=== PATIENT | male | born 1950 | race African-American/Black ===

== ENCOUNTER 2017-07-22 11:47 | Emergency (ER) | payer MEDICARE, OTHER ==
[2017-07-22 12:51] LABS: ADD MAN DIFF? NO
[2017-07-22 12:54] LABS: WHITE BLOOD COUNT 6.7 10^3/ul (4.8-10.8)
[2017-07-22 12:54] LABS: BASOPHILS % 0.6 % (0.0-2.0); EOSINOPHILS % 0.1 % (0.0-7.0); HEMATOCRIT 42.9 % (42.0-52.0); HEMOGLOBIN 14.4 g/dl (14.0-18.0); LYMPHOCYTES # 2.6 10^3/ul (0.8-2.9); MEAN CORPUSCULAR HEMOGLOBIN 28.2 pg (29.0-33.0); MEAN CORPUSCULAR HGB CONC 33.6 g/dl (32.0-37.0); MEAN PLATELET VOLUME 11.7 fl (7.4-10.4); MONOCYTE # 0.9 10^3/ul (0.3-0.9); MONOCYTES % 12.8 % (0.0-11.0); NEUTROPHIL # 3.2 10^3/ul (1.6-7.5); NEUTROPHILS % 47.2 % (39.0-77.0); PLATELET COUNT 202 10^3/UL (140-415); RED BLOOD COUNT 5.11 10^6/ul (4.70-6.10); RED CELL DISTRIBUTION WIDTH 15.7 % (11.5-14.5)
[2017-07-22 13:15] LABS: ANION GAP 15 (8-16); BLOOD UREA NITROGEN 11 mg/dl (7-20); CALCIUM 8.9 mg/dl (8.4-10.2); CARBON DIOXIDE 30 mmol/L (21-31); CHLORIDE 97 mmol/L (97-110); CREATININE 1.06 mg/dl (0.61-1.24); GLUCOSE 172 mg/dl (70-220); POTASSIUM 3.4 mmol/L (3.5-5.1); SODIUM 139 mmol/L (135-144)
[2017-07-22 13:27] LABS: TROPONIN-I 0.019 ng/ml (0.00-0.12)
[2017-07-22] MEDS: POTASSIUM CHLORIDE (SR) 20 MEQ TAB PO (13:48)
== END 2017-07-22 14:04 | disposition home or self-care (01) ==
LOC: E/R 11:47
DX: R55 Syncope and collapse (principal); E87.6 Hypokalemia; F17.210 Nicotine dependence, cigarettes, uncomplicated; Z79.84 Long term (current) use of oral hypoglycemic drugs; Z98.61 Coronary angioplasty status
CPT/HCPCS: 71010; 80048; 82962; 84484; 85025; 93005; 99285-25

== ENCOUNTER 2017-09-05 11:32 | Inpatient (IN) | payer MEDICARE, OTHER ==
[2017-09-05] MEDS: SOD CHLORIDE 0.9% 500 ML IV (12:17)
[2017-09-05 12:20] LABS: ADD MAN DIFF? NO
[2017-09-05] MEDS: FAMOTIDINE 20 MG INJ IV (12:20)
[2017-09-05 12:23] LABS: WHITE BLOOD COUNT 7.9 10^3/ul (4.8-10.8)
[2017-09-05 12:23] LABS: BASOPHIL # 0.1 10^3/ul (0.0-0.1); BASOPHILS % 0.9 % (0.0-2.0); EOSINOPHILS # 0.1 10^3/ul (0.0-0.5); HEMATOCRIT 43.4 % (42.0-52.0); HEMOGLOBIN 14.2 g/dl (14.0-18.0); LYMPHOCYTES # 3.7 10^3/ul (0.8-2.9); LYMPHOCYTES % 47.4 % (15.0-51.0); MEAN CORPUSCULAR HEMOGLOBIN 27.3 pg (29.0-33.0); MEAN CORPUSCULAR HGB CONC 32.7 g/dl (32.0-37.0); MEAN CORPUSCULAR VOLUME 83.3 fl (82.0-101.0); MEAN PLATELET VOLUME 12.1 fl (7.4-10.4); MONOCYTE # 0.6 10^3/ul (0.3-0.9); MONOCYTES % 7.4 % (0.0-11.0); NEUTROPHIL # 3.4 10^3/ul (1.6-7.5); NEUTROPHILS % 42.9 % (39.0-77.0); NUCLEATED RED BLOOD CELLS # 0.1 10^3/ul (0.0-0.0); NUCLEATED RED BLOOD CELLS% 1.4 /100WBC (0.0-0.0); PLATELET COUNT 261 10^3/UL (140-415); RED BLOOD COUNT 5.21 10^6/ul (4.70-6.10); RED CELL DISTRIBUTION WIDTH 14.4 % (11.5-14.5)
[2017-09-05] MEDS: ASPIRIN 81 MG TAB PO (12:25)
[2017-09-05] MEDS: METOPROLOL 5 MG INJ IV ×3 (12:45→13:42)
[2017-09-05 12:50] LABS: ALANINE AMINOTRANSFERASE 468 IU/L (13-69); ALBUMIN 4.6 g/dl (3.3-4.9); ALBUMIN/GLOBULIN RATIO 1.24; ALKALINE PHOSPHATASE 132 IU/L (42-121); ANION GAP 15 (8-16); ASPARTATE AMINO TRANSFERASE 582 IU/L (15-46); BILIRUBIN,INDIRECT 0.4 mg/dl (0-1.1); BILIRUBIN,TOTAL 0.4 mg/dl (0.2-1.3); BLOOD UREA NITROGEN 17 mg/dl (7-20); CALCIUM 9.3 mg/dl (8.4-10.2); CARBON DIOXIDE 30 mmol/L (21-31); CHLORIDE 99 mmol/L (97-110); CREATININE 1.05 mg/dl (0.61-1.24); GLUCOSE 247 mg/dl (70-220); POTASSIUM 4.4 mmol/L (3.5-5.1); SODIUM 140 mmol/L (135-144); TOTAL PROTEIN 8.3 g/dl (6.1-8.1)
[2017-09-05 12:53] LABS: LIPASE 221 U/L (23-300)
[2017-09-05 12:55] LABS: INR 2.02; PROTIME 23.3 Sec (11.9-14.9); PT RATIO 1.8
[2017-09-05 13:01] LABS: TROPONIN-I 0.105 ng/ml (0.00-0.12)
[2017-09-05] MEDS: DILTIAZEM-D5W 125MG/125ML DRIP 125 ML IV (13:48)
[2017-09-05] MEDS ORDERED: ONDANSETRON 4 MG INJ IV ×2 (14:00→14:30)
[2017-09-05] MEDS ORDERED: ACETAMINOPHEN 325 MG TAB PO (14:00)
[2017-09-05] MEDS ORDERED: GLUCOSE GEL 15 GRAM TUBE BUCCAL (14:30)
[2017-09-05] MEDS ORDERED: GLUCOSE GEL 15 GRAM TUBE PO ×2 (14:30)
[2017-09-05] MEDS ORDERED: BISACODYL 10 MG SUPP PR (14:30)
[2017-09-05] MEDS ORDERED: DEXTROSE 50% 50 ML SYRINGE IV ×2 (14:30)
[2017-09-05] MEDS ORDERED: NACL 0.9% 3 ML SYG IV (14:30)
[2017-09-05] MEDS ORDERED: GLUCAGON 1 MG INJ IM (14:30)
[2017-09-05] MEDS ORDERED: ACETAMINOPHEN 650 MG SUPP PR (14:30)
[2017-09-05] MEDS: morphine 4 MG/ML VIAL IV (14:55)
[2017-09-05 18:00] LABS: CREATINE KINASE 52 IU/L (23-200)
[2017-09-05 18:14] LABS: CK INDEX 1.9; TROPONIN-I 0.115 ng/ml (0.00-0.12)
[2017-09-05 18:23] LABS: CK-MB 0.98 ng/ml (0.0-2.4)
[2017-09-05] MEDS: RIVAROXABAN 20 MG TABLET PO (19:24)
[2017-09-05] MEDS: INSULIN ASPART [NOVOLOG] 3 ML PEN SC ×2 (19:37→21:31)
[2017-09-05] MEDS: DIGOXIN 500 MCG INJ IV (19:55)
[2017-09-05] MEDS ORDERED: ATORVASTATIN 10 MG TAB PO (21:00)
[2017-09-05] MEDS ORDERED: AMIODARONE 200 MG TAB PO (21:00)
[2017-09-05 21:07] LABS: B-TYPE NATRIURETIC PEPTIDE 3220 PG/ML (0-125)
[2017-09-05] MEDS: LISINOPRIL 20 MG TAB PO (21:39)
[2017-09-05] MEDS: METOPROLOL 25 MG TAB PO (21:39)
[2017-09-05] MEDS: MAGNESIUM HYDROXIDE 30ML CUP PO (21:41)
[2017-09-05] MEDS ORDERED: RANITIDINE 150 MG TAB PO (22:30)
[2017-09-06 01:16] LABS: TROPONIN-I 0.128 ng/ml (0.00-0.12)
[2017-09-06] MEDS: ACCU-CHEK XX (02:24)
[2017-09-06] MEDS: DIGOXIN 500 MCG INJ IV (02:31)
[2017-09-06] MEDS: ZOLPIDEM 5 MG TAB PO ×2 (02:34→23:11)
[2017-09-06 05:26] LABS: ADD MAN DIFF? NO
[2017-09-06 05:32] LABS: WHITE BLOOD COUNT 10.5 10^3/ul (4.8-10.8)
[2017-09-06 05:32] LABS: BASOPHIL # 0.1 10^3/ul (0.0-0.1); BASOPHILS % 0.8 % (0.0-2.0); EOSINOPHILS % 0.2 % (0.0-7.0); HEMOGLOBIN 12.5 g/dl (14.0-18.0); LYMPHOCYTES # 3.3 10^3/ul (0.8-2.9); LYMPHOCYTES % 31.2 % (15.0-51.0); MEAN CORPUSCULAR HEMOGLOBIN 27.8 pg (29.0-33.0); MEAN CORPUSCULAR HGB CONC 33.8 g/dl (32.0-37.0); MEAN CORPUSCULAR VOLUME 82.2 fl (82.0-101.0); MEAN PLATELET VOLUME 12.2 fl (7.4-10.4); MONOCYTE # 0.9 10^3/ul (0.3-0.9); MONOCYTES % 8.7 % (0.0-11.0); NEUTROPHIL # 6.2 10^3/ul (1.6-7.5); NEUTROPHILS % 58.8 % (39.0-77.0); NUCLEATED RED BLOOD CELLS # 0.1 10^3/ul (0.0-0.0); NUCLEATED RED BLOOD CELLS% 0.8 /100WBC (0.0-0.0); PLATELET COUNT 210 10^3/UL (140-415); RED CELL DISTRIBUTION WIDTH 14.5 % (11.5-14.5)
[2017-09-06] MEDS: PANTOPRAZOLE 40 MG INJ IV (05:44)
[2017-09-06 05:58] LABS: ALANINE AMINOTRANSFERASE 686 IU/L (13-69); ALBUMIN 3.8 g/dl (3.3-4.9); ALBUMIN/GLOBULIN RATIO 1.18; ALKALINE PHOSPHATASE 117 IU/L (42-121); ANION GAP 12 (8-16); ASPARTATE AMINO TRANSFERASE 745 IU/L (15-46); BILIRUBIN,INDIRECT 0.5 mg/dl (0-1.1); BILIRUBIN,TOTAL 0.5 mg/dl (0.2-1.3); BLOOD UREA NITROGEN 21 mg/dl (7-20); CALCIUM 9.1 mg/dl (8.4-10.2); CARBON DIOXIDE 32 mmol/L (21-31); CHLORIDE 99 mmol/L (97-110); CHOL/HDL RATIO 6.5 RATIO; CHOLESTEROL 250 mg/dl (100-200); CREATININE 1.05 mg/dl (0.61-1.24); GLUCOSE 183 mg/dl (70-220); HDL CHOLESTEROL 38 mg/dl (30-78); LDL CHOLESTEROL,CALCULATED 170 mg/dl; MAGNESIUM 1.8 mg/dl (1.7-2.5); POTASSIUM 5.2 mmol/L (3.5-5.1); SODIUM 138 mmol/L (135-144); TRIGLYCERIDES 210 mg/dl (0-149)
[2017-09-06 06:12] LABS: T3 UPTAKE 38.8 % (23.5-40.5)
[2017-09-06 06:16] LABS: FREE THYROXINE INDEX (Calc) 2.91 ug/ml (0.65-3.89); T4 (THYROXINE) 7.5 ug/dl (5.5-11.0)
[2017-09-06 06:33] LABS: TROPONIN-I 0.135 ng/ml (0.00-0.12)
[2017-09-06 06:54] LABS: HEMOGLOBIN A1C 7.8 % (0-5.9)
[2017-09-06] MEDS: INSULIN ASPART [NOVOLOG] 3 ML PEN SC ×4 (07:35→20:15)
[2017-09-06] MEDS ORDERED: metFORMIN 500 MG TAB PO (08:00)
[2017-09-06] MEDS: FUROSEMIDE 20 MG INJ IV (10:06)
[2017-09-06] MEDS: METOPROLOL 25 MG TAB PO ×2 (10:07→20:14)
[2017-09-06] MEDS: BARIUM SULF 2% 450 ML BTL (BERRY SMOOTHIE) PO (10:30)
[2017-09-06] MEDS: CLOPIDOGREL 75 MG TAB PO (12:15)
[2017-09-06] MEDS: LISINOPRIL 20 MG TAB PO ×2 (12:15→20:13)
[2017-09-06] MEDS: DILTIAZEM-D5W 125MG/125ML DRIP 125 ML IV (13:48)
[2017-09-06] MEDS: RIVAROXABAN 20 MG TABLET PO (18:01)
[2017-09-07] MEDS: METOPROLOL 5 MG INJ IV ×3 (00:26→21:45)
[2017-09-07] MEDS: ACCU-CHEK XX (02:00)
[2017-09-07] MEDS: PANTOPRAZOLE 40 MG INJ IV (05:11)
[2017-09-07 07:41] LABS: ADD MAN DIFF? NO
[2017-09-07 07:44] LABS: BASOPHIL # 0.1 10^3/ul (0.0-0.1); BASOPHILS % 0.7 % (0.0-2.0); EOSINOPHILS # 0.2 10^3/ul (0.0-0.5); EOSINOPHILS % 2.8 % (0.0-7.0); HEMATOCRIT 37.5 % (42.0-52.0); HEMOGLOBIN 12.6 g/dl (14.0-18.0); LYMPHOCYTES # 2.5 10^3/ul (0.8-2.9); LYMPHOCYTES % 37.3 % (15.0-51.0); MEAN CORPUSCULAR HEMOGLOBIN 27.3 pg (29.0-33.0); MEAN CORPUSCULAR HGB CONC 33.6 g/dl (32.0-37.0); MEAN CORPUSCULAR VOLUME 81.3 fl (82.0-101.0); MEAN PLATELET VOLUME 11.5 fl (7.4-10.4); MONOCYTE # 0.6 10^3/ul (0.3-0.9); MONOCYTES % 9.1 % (0.0-11.0); NEUTROPHIL # 3.4 10^3/ul (1.6-7.5); PLATELET COUNT 243 10^3/UL (140-415); RED BLOOD COUNT 4.61 10^6/ul (4.70-6.10); RED CELL DISTRIBUTION WIDTH 14.2 % (11.5-14.5)
[2017-09-07 07:44] LABS: WHITE BLOOD COUNT 6.8 10^3/ul (4.8-10.8)
[2017-09-07] MEDS: INSULIN ASPART [NOVOLOG] 3 ML PEN SC ×4 (07:55→21:00)
[2017-09-07 08:03] LABS: ANION GAP 13 (8-16); BLOOD UREA NITROGEN 16 mg/dl (7-20); CARBON DIOXIDE 28 mmol/L (21-31); CHLORIDE 104 mmol/L (97-110); CREATININE 0.89 mg/dl (0.61-1.24); GLUCOSE 128 mg/dl (70-220); POTASSIUM 3.6 mmol/L (3.5-5.1); SODIUM 141 mmol/L (135-144)
[2017-09-07] MEDS: CLOPIDOGREL 75 MG TAB PO (08:05)
[2017-09-07] MEDS: METOPROLOL (XL) 50 MG TAB PO ×3 (08:06→21:37)
[2017-09-07] MEDS: LISINOPRIL 20 MG TAB PO ×2 (08:06→21:38)
[2017-09-07] MEDS: FUROSEMIDE 20 MG INJ IV (08:06)
[2017-09-07] MEDS: DILTIAZEM 25 MG INJ IV (09:22)
[2017-09-07] MEDS: DIGOXIN 500 MCG INJ IV (09:22)
[2017-09-07] MEDS ORDERED: DILTIAZEM 25 MG INJ IV (09:30)
[2017-09-07] MEDS: DIGOXIN 0.125 MG TAB PO (12:13)
[2017-09-07 16:06] LABS: ALANINE AMINOTRANSFERASE 492 IU/L (13-69); ALBUMIN 3.4 g/dl (3.3-4.9); ALKALINE PHOSPHATASE 109 IU/L (42-121); ASPARTATE AMINO TRANSFERASE 297 IU/L (15-46); BILIRUBIN,INDIRECT 0.2 mg/dl (0-1.1); BILIRUBIN,TOTAL 0.2 mg/dl (0.2-1.3); TOTAL PROTEIN 6.5 g/dl (6.1-8.1)
[2017-09-07] MEDS: DILTIAZEM (CD) 180 MG CAP PO (16:08)
[2017-09-07] MEDS ORDERED: hydrALAzine 20 MG INJ IV (18:00)
[2017-09-07] MEDS: FUROSEMIDE 40 MG INJ IV (18:10)
[2017-09-07] MEDS: RIVAROXABAN 20 MG TABLET PO (18:10)
[2017-09-07] MEDS: ZOLPIDEM 5 MG TAB PO (21:38)
[2017-09-08] MEDS: ACCU-CHEK XX (02:35)
[2017-09-08] MEDS: FUROSEMIDE 40 MG INJ IV ×2 (05:50→17:22)
[2017-09-08] MEDS: PANTOPRAZOLE 40 MG INJ IV (05:50)
[2017-09-08 07:38] LABS: ADD MAN DIFF? NO
[2017-09-08 07:46] LABS: BASOPHILS % 0.6 % (0.0-2.0); EOSINOPHILS # 0.3 10^3/ul (0.0-0.5); HEMATOCRIT 40.9 % (42.0-52.0); HEMOGLOBIN 13.9 g/dl (14.0-18.0); LYMPHOCYTES % 42.7 % (15.0-51.0); MEAN CORPUSCULAR HEMOGLOBIN 27.4 pg (29.0-33.0); MEAN CORPUSCULAR VOLUME 80.7 fl (82.0-101.0); MEAN PLATELET VOLUME 11.6 fl (7.4-10.4); MONOCYTE # 0.7 10^3/ul (0.3-0.9); MONOCYTES % 9.9 % (0.0-11.0); NEUTROPHILS % 42.5 % (39.0-77.0); PLATELET COUNT 263 10^3/UL (140-415); RED BLOOD COUNT 5.07 10^6/ul (4.70-6.10); RED CELL DISTRIBUTION WIDTH 14.6 % (11.5-14.5)
[2017-09-08 08:08] LABS: ALANINE AMINOTRANSFERASE 391 IU/L (13-69); ALBUMIN 4.3 g/dl (3.3-4.9); ALKALINE PHOSPHATASE 125 IU/L (42-121); ASPARTATE AMINO TRANSFERASE 151 IU/L (15-46); BILIRUBIN,INDIRECT 0.4 mg/dl (0-1.1); BILIRUBIN,TOTAL 0.4 mg/dl (0.2-1.3); TOTAL PROTEIN 7.7 g/dl (6.1-8.1)
[2017-09-08 08:09] LABS: ANION GAP 13 (8-16); BLOOD UREA NITROGEN 15 mg/dl (7-20); CALCIUM 9.6 mg/dl (8.4-10.2); CARBON DIOXIDE 29 mmol/L (21-31); CHLORIDE 101 mmol/L (97-110); CREATININE 0.92 mg/dl (0.61-1.24); GLUCOSE 158 mg/dl (70-220); SODIUM 139 mmol/L (135-144)
[2017-09-08] MEDS: INSULIN ASPART [NOVOLOG] 3 ML PEN SC ×4 (08:15→20:59)
[2017-09-08] MEDS: CLOPIDOGREL 75 MG TAB PO (09:32)
[2017-09-08] MEDS: LISINOPRIL 20 MG TAB PO ×2 (09:32→20:59)
[2017-09-08] MEDS: DILTIAZEM (CD) 180 MG CAP PO (09:32)
[2017-09-08] MEDS: METOPROLOL (XL) 50 MG TAB PO ×3 (09:33→20:59)
[2017-09-08] MEDS: DIGOXIN 0.125 MG TAB PO (15:08)
[2017-09-08] MEDS ORDERED: BARIUM SULF 2% 450 ML BTL (BERRY SMOOTHIE) PO (15:30)
[2017-09-08] MEDS: RIVAROXABAN 20 MG TABLET PO (17:04)
[2017-09-08] MEDS: SOD CHLORIDE 0.9% 100 ML (20:00)
[2017-09-08] MEDS: IODIXANOL LOCM 100 ML BTL (20:00)
[2017-09-08] MEDS: ZOLPIDEM 5 MG TAB PO (20:58)
[2017-09-09] MEDS: ACCU-CHEK XX (02:00)
[2017-09-09] MEDS: PANTOPRAZOLE 40 MG INJ IV (06:10)
[2017-09-09] MEDS: FUROSEMIDE 40 MG INJ IV ×2 (06:11→17:38)
[2017-09-09 06:51] LABS: ADD MAN DIFF? NO
[2017-09-09 07:02] LABS: WHITE BLOOD COUNT 7.3 10^3/ul (4.8-10.8)
[2017-09-09 07:02] LABS: BASOPHIL # 0.1 10^3/ul (0.0-0.1); BASOPHILS % 0.7 % (0.0-2.0); EOSINOPHILS # 0.4 10^3/ul (0.0-0.5); EOSINOPHILS % 5.1 % (0.0-7.0); HEMATOCRIT 41.3 % (42.0-52.0); HEMOGLOBIN 14.1 g/dl (14.0-18.0); LYMPHOCYTES # 3.5 10^3/ul (0.8-2.9); LYMPHOCYTES % 47.3 % (15.0-51.0); MEAN CORPUSCULAR HEMOGLOBIN 27.7 pg (29.0-33.0); MEAN CORPUSCULAR HGB CONC 34.1 g/dl (32.0-37.0); MEAN CORPUSCULAR VOLUME 81.1 fl (82.0-101.0); MEAN PLATELET VOLUME 10.6 fl (7.4-10.4); MONOCYTE # 0.7 10^3/ul (0.3-0.9); MONOCYTES % 9.5 % (0.0-11.0); NEUTROPHIL # 2.7 10^3/ul (1.6-7.5); NEUTROPHILS % 37.3 % (39.0-77.0); PLATELET COUNT 249 10^3/UL (140-415); RED BLOOD COUNT 5.09 10^6/ul (4.70-6.10)
[2017-09-09 07:11] LABS: ALANINE AMINOTRANSFERASE 286 IU/L (13-69); ALBUMIN 4.1 g/dl (3.3-4.9); ALKALINE PHOSPHATASE 113 IU/L (42-121); ANION GAP 13 (8-16); ASPARTATE AMINO TRANSFERASE 73 IU/L (15-46); BILIRUBIN,INDIRECT 0.4 mg/dl (0-1.1); BILIRUBIN,TOTAL 0.4 mg/dl (0.2-1.3); BLOOD UREA NITROGEN 18 mg/dl (7-20); CALCIUM 9.7 mg/dl (8.4-10.2); CARBON DIOXIDE 29 mmol/L (21-31); CHLORIDE 102 mmol/L (97-110); CREATININE 0.89 mg/dl (0.61-1.24); GLUCOSE 153 mg/dl (70-220); POTASSIUM 3.7 mmol/L (3.5-5.1); SODIUM 140 mmol/L (135-144); TOTAL PROTEIN 7.5 g/dl (6.1-8.1)
[2017-09-09] MEDS: INSULIN ASPART [NOVOLOG] 3 ML PEN SC ×4 (08:03→20:27)
[2017-09-09] MEDS: CLOPIDOGREL 75 MG TAB PO (09:13)
[2017-09-09] MEDS: LISINOPRIL 20 MG TAB PO ×2 (09:13→20:29)
[2017-09-09] MEDS: DILTIAZEM (CD) 180 MG CAP PO (09:14)
[2017-09-09] MEDS: METOPROLOL (XL) 50 MG TAB PO ×3 (09:14→20:28)
[2017-09-09] MEDS: DIGOXIN 0.125 MG TAB PO (14:21)
[2017-09-09] MEDS: RIVAROXABAN 20 MG TABLET PO (17:38)
[2017-09-09] MEDS: ZOLPIDEM 5 MG TAB PO (20:28)
[2017-09-09] MEDS: ACETAMINOPHEN 325 MG TAB PO (20:28)
[2017-09-10] MEDS: ACCU-CHEK XX (02:00)
[2017-09-10] MEDS: FUROSEMIDE 40 MG INJ IV (05:59)
[2017-09-10 07:12] LABS: ADD MAN DIFF? NO
[2017-09-10 07:14] LABS: BASOPHIL # 0.1 10^3/ul (0.0-0.1); BASOPHILS % 0.7 % (0.0-2.0); EOSINOPHILS # 0.4 10^3/ul (0.0-0.5); EOSINOPHILS % 5.7 % (0.0-7.0); HEMATOCRIT 42.1 % (42.0-52.0); HEMOGLOBIN 14.1 g/dl (14.0-18.0); LYMPHOCYTES # 3.3 10^3/ul (0.8-2.9); LYMPHOCYTES % 47.1 % (15.0-51.0); MEAN CORPUSCULAR HEMOGLOBIN 27.5 pg (29.0-33.0); MEAN CORPUSCULAR HGB CONC 33.5 g/dl (32.0-37.0); MEAN CORPUSCULAR VOLUME 82.1 fl (82.0-101.0); MEAN PLATELET VOLUME 11.4 fl (7.4-10.4); MONOCYTE # 0.7 10^3/ul (0.3-0.9); MONOCYTES % 10.2 % (0.0-11.0); NEUTROPHIL # 2.5 10^3/ul (1.6-7.5); PLATELET COUNT 254 10^3/UL (140-415); RED BLOOD COUNT 5.13 10^6/ul (4.70-6.10); RED CELL DISTRIBUTION WIDTH 14.2 % (11.5-14.5)
[2017-09-10 07:20] LABS: HAAIG REFLEX REFLEX FILED
[2017-09-10 07:43] LABS: ALANINE AMINOTRANSFERASE 201 IU/L (13-69); ALBUMIN 4.1 g/dl (3.3-4.9); ALBUMIN/GLOBULIN RATIO 1.05; ALKALINE PHOSPHATASE 113 IU/L (42-121); ANION GAP 11 (8-16); ASPARTATE AMINO TRANSFERASE 52 IU/L (15-46); BILIRUBIN,INDIRECT 0.4 mg/dl (0-1.1); BILIRUBIN,TOTAL 0.4 mg/dl (0.2-1.3); BLOOD UREA NITROGEN 19 mg/dl (7-20); CALCIUM 9.6 mg/dl (8.4-10.2); CARBON DIOXIDE 32 mmol/L (21-31); CHLORIDE 100 mmol/L (97-110); CREATININE 1.14 mg/dl (0.61-1.24); GLUCOSE 177 mg/dl (70-220); MAGNESIUM 1.8 mg/dl (1.7-2.5); POTASSIUM 4.3 mmol/L (3.5-5.1); SODIUM 139 mmol/L (135-144)
[2017-09-10 07:44] LABS: INR 2.21; PROTIME 25.1 Sec (11.9-14.9)
[2017-09-10] MEDS: INSULIN ASPART [NOVOLOG] 3 ML PEN SC ×2 (07:56→11:43)
[2017-09-10 07:57] LABS: ANION GAP 11 (8-16); BLOOD UREA NITROGEN 19 mg/dl (7-20); CALCIUM 9.4 mg/dl (8.4-10.2); CARBON DIOXIDE 32 mmol/L (21-31); CHLORIDE 101 mmol/L (97-110); CREATININE 1.13 mg/dl (0.61-1.24); GLUCOSE 171 mg/dl (70-220); POTASSIUM 4.2 mmol/L (3.5-5.1); SODIUM 140 mmol/L (135-144)
[2017-09-10 08:28] LABS: HEPATITIS B SURFACE ANTIGEN NEGATIVE (NEGATIVE)
[2017-09-10 08:46] LABS: HEPATITIS B CORE ANTIBODY NEGATIVE (NEGATIVE); HEPATITIS C VIRAL ANTIBODY NEGATIVE (NEGATIVE)
[2017-09-10] MEDS: DILTIAZEM (CD) 180 MG CAP PO (10:11)
[2017-09-10] MEDS: METOPROLOL (XL) 50 MG TAB PO ×2 (10:11→12:31)
[2017-09-10] MEDS: CLOPIDOGREL 75 MG TAB PO (10:12)
[2017-09-10] MEDS: FAMOTIDINE 20 MG TAB PO (10:12)
[2017-09-10] MEDS: LISINOPRIL 20 MG TAB PO (10:12)
[2017-09-10] MEDS: DOCUSATE SODIUM 100 MG CAP PO (10:15)
[2017-09-10] MEDS ORDERED: FUROSEMIDE 40 MG TAB PO (18:00)
== END 2017-09-10 15:30 | disposition home or self-care (01) | DRG 308 ==
LOC: TEL 09-06 11:25 → E/R 11:32 → TEL 18:56 → MS3 13:53
PROVIDERS: Internal Medicine
DX: I48.92 Unspecified atrial flutter (principal); I50.23 Acute on chronic systolic (congestive) heart failure; I42.9 Cardiomyopathy, unspecified; E88.81 Metabolic syndrome and other insulin resistance; N28.1 Cyst of kidney, acquired; Z95.1 Presence of aortocoronary bypass graft; I10 Essential (primary) hypertension; R55 Syncope and collapse; I25.10 Atherosclerotic heart disease of native coronary artery without angina pectoris; F17.200 Nicotine dependence, unspecified, uncomplicated; I11.0 Hypertensive heart disease with heart failure; E11.9 Type 2 diabetes mellitus without complications; E78.5 Hyperlipidemia, unspecified; R62.7 Adult failure to thrive; Z59.0 Homelessness; K80.20 Calculus of gallbladder without cholecystitis without obstruction; K57.90 Diverticulosis of intestine, part unspecified, without perforation or abscess without bleeding
CPT/HCPCS: 36415; 71045; 74170; 74176; 80048; 80053; 80061; 80076; 82550; 82553; 82962; 83036; 83690; 83735; 83880; 84100; 84436; 84443; 84479; 84484; 85025; 85610; 86704; 86709; 86803; 87340; 93005; 93880; 96361; 96374; 96375; 96376; 99291-25; J1940

== ENCOUNTER 2019-02-13 13:59 | Inpatient (IN) | payer MEDICARE, OTHER ==
[2019-02-13] MEDS: DILTIAZEM 25 MG INJ IV (14:30)
[2019-02-13] MEDS: MAGNESIUM SULFATE 2 GM/50 ML 50 ML IVPB (14:31)
[2019-02-13 14:34] LABS: ADD MAN DIFF? NO
[2019-02-13 14:36] LABS: WHITE BLOOD COUNT 8.3 10^3/ul (4.8-10.8)
[2019-02-13 14:36] LABS: BASOPHIL # 0.1 10^3/ul (0.0-0.1); BASOPHILS % 0.6 % (0.0-2.0); EOSINOPHILS % 0.4 % (0.0-7.0); HEMATOCRIT 41.5 % (42.0-52.0); HEMOGLOBIN 13.6 g/dl (14.0-18.0); LYMPHOCYTES # 3.8 10^3/ul (0.8-2.9); LYMPHOCYTES % 45.8 % (15.0-51.0); MEAN CORPUSCULAR HEMOGLOBIN 27.2 pg (29.0-33.0); MEAN CORPUSCULAR HGB CONC 32.8 g/dl (32.0-37.0); MEAN PLATELET VOLUME 10.8 fl (7.4-10.4); MONOCYTE # 0.8 10^3/ul (0.3-0.9); MONOCYTES % 9.3 % (0.0-11.0); NEUTROPHIL # 3.6 10^3/ul (1.6-7.5); NEUTROPHILS % 43.5 % (39.0-77.0); NUCLEATED RED BLOOD CELLS # 0.1 10^3/ul (0.0-0.0); NUCLEATED RED BLOOD CELLS% 0.8 /100WBC (0.0-0.0); PLATELET COUNT 285 10^3/UL (140-415); RED CELL DISTRIBUTION WIDTH 14.4 % (11.5-14.5)
[2019-02-13 14:56] LABS: ANION GAP 12 (5-13); BLOOD UREA NITROGEN 27 mg/dl (7-20); CALCIUM 9.4 mg/dl (8.4-10.2); CARBON DIOXIDE 26 mmol/L (21-31); CHLORIDE 100 mmol/L (97-110); CREATININE 1.42 mg/dl (0.61-1.24); Estimated GFR > 60 mL/min (>60); GLUCOSE 158 mg/dl (70-220); POTASSIUM 4.7 mmol/L (3.5-5.1); SODIUM 138 mmol/L (135-144)
[2019-02-13] MEDS: DILTIAZEM-D5W 125MG/125ML DRIP 125 ML IV (15:05)
[2019-02-13 15:08] LABS: B-TYPE NATRIURETIC PEPTIDE 3640 PG/ML (0-125)
[2019-02-13 15:15] LABS: TROPONIN-I 0.219 ng/ml (0.000-0.120)
[2019-02-13] MEDS: ASPIRIN 81 MG TAB PO (15:57)
[2019-02-13] MEDS: FUROSEMIDE 40 MG INJ IV (15:57)
[2019-02-13] MEDS ORDERED: ACETAMINOPHEN 325 MG TAB PO (16:00)
[2019-02-13 19:06] LABS: ALANINE AMINOTRANSFERASE 440 IU/L (13-69); ALBUMIN 4.1 g/dl (3.3-4.9); ALKALINE PHOSPHATASE 165 IU/L (42-121); ASPARTATE AMINO TRANSFERASE 557 IU/L (15-46); BILIRUBIN,INDIRECT 0.9 mg/dl (0-1.1); BILIRUBIN,TOTAL 0.9 mg/dl (0.2-1.3); TOTAL PROTEIN 6.8 g/dl (6.1-8.1)
[2019-02-13] MEDS: FUROSEMIDE 20 MG INJ IV (19:30)
[2019-02-13] MEDS ORDERED: NACL 0.9% 3 ML SYG IV (19:30)
[2019-02-13 19:33] LABS: HAAIG REFLEX REFLEX FILED
[2019-02-13] MEDS ORDERED: GLUCOSE GEL 15 GRAM TUBE BUCCAL (20:00)
[2019-02-13] MEDS ORDERED: GLUCOSE GEL 15 GRAM TUBE PO ×2 (20:00)
[2019-02-13] MEDS ORDERED: DEXTROSE 50% 50 ML SYRINGE IV ×2 (20:00)
[2019-02-13] MEDS ORDERED: GLUCAGON 1 MG INJ IM (20:00)
[2019-02-13 20:22] LABS: HEPATITIS B SURFACE ANTIGEN NEGATIVE (NEGATIVE)
[2019-02-13 20:40] LABS: HEPATITIS B CORE ANTIBODY NEGATIVE (NEGATIVE); HEPATITIS C VIRAL ANTIBODY NEGATIVE (NEGATIVE)
[2019-02-13 20:54] LABS: CREATINE KINASE 59 IU/L (23-200)
[2019-02-13] MEDS ORDERED: LISINOPRIL 20 MG TAB PO (21:00)
[2019-02-13] MEDS ORDERED: NON-FORMULARY/PATIENT OWN MED (Pravastatin Sodium* 20 MG) PO (21:00)
[2019-02-13 21:06] LABS: CK INDEX 2.5; CK-MB 1.45 ng/ml (0.0-2.4)
[2019-02-13] MEDS: ATORVASTATIN 10 MG TAB PO (21:08)
[2019-02-13] MEDS: METOPROLOL 25 MG TAB PO (21:09)
[2019-02-13] MEDS: INSULIN GLARGINE [LANTus] (100 UNITS/ML) SYG SC (21:28)
[2019-02-13] MEDS: INSULIN ASPART [NOVOLOG] 3 ML PEN SC (21:47)
[2019-02-13] MEDS: ZOLPIDEM 5 MG TAB PO (21:48)
[2019-02-13] MEDS: AMIODARONE 150MG/D5W BOLUS 100 ML IV (21:50)
[2019-02-13] MEDS: AMIODARONE 900 MG in DEXTROSE 5% 482 ML IV (22:57)
[2019-02-13] MEDS: LORAZEPAM 0.5 MG TAB PO (23:39)
[2019-02-14] MEDS: LEVALBUTEROL (NEB) 1.25 MG/0.5 ML AMP HHN ×2 (02:24→23:28)
[2019-02-14 02:54] LABS: CREATINE KINASE 74 IU/L (23-200)
[2019-02-14] MEDS: LORAZEPAM 2 MG INJ IV ×3 (02:54→23:00)
[2019-02-14 03:13] LABS: CK INDEX 2.9; CK-MB 2.13 ng/ml (0.0-2.4); TROPONIN-I 0.313 ng/ml (0.000-0.120)
[2019-02-14] MEDS: ONDANSETRON 4 MG INJ IV (03:45)
[2019-02-14] MEDS: AMIODARONE 900 MG in DEXTROSE 5% 482 ML IV (05:24)
[2019-02-14] MEDS: FUROSEMIDE 20 MG INJ IV (05:25)
[2019-02-14 06:11] LABS: ADD MAN DIFF? NO
[2019-02-14 06:16] LABS: WHITE BLOOD COUNT 12.4 10^3/ul (4.8-10.8)
[2019-02-14 06:16] LABS: BASOPHIL # 0.1 10^3/ul (0.0-0.1); BASOPHILS % 0.6 % (0.0-2.0); EOSINOPHILS % 0.2 % (0.0-7.0); HEMATOCRIT 42.7 % (42.0-52.0); HEMOGLOBIN 13.7 g/dl (14.0-18.0); LYMPHOCYTES # 3.8 10^3/ul (0.8-2.9); LYMPHOCYTES % 30.8 % (15.0-51.0); MEAN CORPUSCULAR HEMOGLOBIN 27.4 pg (29.0-33.0); MEAN CORPUSCULAR HGB CONC 32.1 g/dl (32.0-37.0); MEAN CORPUSCULAR VOLUME 85.4 fl (82.0-101.0); MEAN PLATELET VOLUME 11.3 fl (7.4-10.4); MONOCYTE # 0.8 10^3/ul (0.3-0.9); MONOCYTES % 6.8 % (0.0-11.0); NEUTROPHIL # 7.4 10^3/ul (1.6-7.5); NEUTROPHILS % 59.8 % (39.0-77.0); NUCLEATED RED BLOOD CELLS # 0.2 10^3/ul (0.0-0.0); NUCLEATED RED BLOOD CELLS% 1.3 /100WBC (0.0-0.0); PLATELET COUNT 253 10^3/UL (140-415); RED CELL DISTRIBUTION WIDTH 14.6 % (11.5-14.5)
[2019-02-14 06:25] LABS: HEMOGLOBIN A1C 7.6 % (0-5.9)
[2019-02-14 06:42] LABS: ALANINE AMINOTRANSFERASE 604 IU/L (13-69); ALBUMIN 4.3 g/dl (3.3-4.9); ALBUMIN/GLOBULIN RATIO 1.34; ALKALINE PHOSPHATASE 184 IU/L (42-121); ANION GAP 22 (5-13); ASPARTATE AMINO TRANSFERASE 734 IU/L (15-46); BILIRUBIN,INDIRECT 0.8 mg/dl (0-1.1); BILIRUBIN,TOTAL 0.8 mg/dl (0.2-1.3); BLOOD UREA NITROGEN 34 mg/dl (7-20); CALCIUM 9.2 mg/dl (8.4-10.2); CARBON DIOXIDE 21 mmol/L (21-31); CHLORIDE 97 mmol/L (97-110); CREATININE 2.33 mg/dl (0.61-1.24); Estimated GFR 34 mL/min (>60); GLUCOSE 169 mg/dl (70-220); POTASSIUM 5.4 mmol/L (3.5-5.1); SODIUM 140 mmol/L (135-144); TOTAL PROTEIN 7.5 g/dl (6.1-8.1)
[2019-02-14 06:49] LABS: MAGNESIUM 2.7 mg/dl (1.7-2.5)
[2019-02-14 07:22] LABS: HIV 1&2 ANTIBODY NEGATIVE (NEGATIVE)
[2019-02-14] MEDS: INSULIN ASPART [NOVOLOG] 3 ML PEN SC ×4 (07:55→20:53)
[2019-02-14 08:50] LABS: CREATINE KINASE 98 IU/L (23-200)
[2019-02-14 08:59] LABS: CK INDEX 2.2; CK-MB 2.18 ng/ml (0.0-2.4)
[2019-02-14 09:00] LABS: TROPONIN-I 0.434 ng/ml (0.000-0.120)
[2019-02-14] MEDS: CLOPIDOGREL 75 MG TAB PO (10:09)
[2019-02-14] MEDS: METOPROLOL 25 MG TAB PO (10:10)
[2019-02-14 16:01] LABS: CREATINE KINASE 79 IU/L (23-200)
[2019-02-14 16:06] LABS: B-TYPE NATRIURETIC PEPTIDE 9370 PG/ML (0-125)
[2019-02-14 16:09] LABS: CK INDEX 3.2
[2019-02-14 16:14] LABS: CK-MB 2.49 ng/ml (0.0-2.4); TROPONIN-I 0.566 ng/ml (0.000-0.120)
[2019-02-14] MEDS: RIVAROXABAN 15 MG TABLET PO (17:42)
[2019-02-14] MEDS ORDERED: RIVAROXABAN 20 MG TABLET PO (17:55)
[2019-02-14] MEDS: ATORVASTATIN 10 MG TAB PO (20:53)
[2019-02-14] MEDS: METOPROLOL (XL) 25 MG TAB PO (20:53)
[2019-02-14] MEDS ORDERED: METOPROLOL 50 MG TAB PO (21:00)
[2019-02-14] MEDS: INSULIN GLARGINE [LANTus] (100 UNITS/ML) SYG SC (21:01)
[2019-02-15] MEDS: NICOTINE (21 MG/24 HR) PATCH TRANSDERM (02:01)
[2019-02-15 04:48] LABS: AADO2 Arterial 86.2 mmHg (7.0-24.0); Allen Test ACCEPTAB; Arterial Base Excess -17.9 mmol/L (-3.0-3); Arterial COHb 0.1 % (0.0-3.0); Arterial Fraction of Oxyhgb 93.7 % (93.0-99.0); Arterial HCO3 9.1 mmol/L (22.0-26.0); Arterial MetHb 0.2 % (0.0-1.5); Arterial pCO2 25.5 mmhg (35-45); MODE NASAL CANNULA; Site Right Radial
[2019-02-15 05:44] LABS: ADD MAN DIFF? NO
[2019-02-15 05:52] LABS: BASOPHILS % 0.1 % (0.0-2.0); HEMATOCRIT 36.9 % (42.0-52.0); HEMOGLOBIN 11.5 g/dl (14.0-18.0); LYMPHOCYTES # 1.7 10^3/ul (0.8-2.9); LYMPHOCYTES % 8.8 % (15.0-51.0); MEAN CORPUSCULAR HEMOGLOBIN 27.7 pg (29.0-33.0); MEAN CORPUSCULAR HGB CONC 31.2 g/dl (32.0-37.0); MEAN CORPUSCULAR VOLUME 88.9 fl (82.0-101.0); NEUTROPHIL # 16.6 10^3/ul (1.6-7.5); NEUTROPHILS % 84.8 % (39.0-77.0); NUCLEATED RED BLOOD CELLS # 0.2 10^3/ul (0.0-0.0); PLATELET COUNT 207 10^3/UL (140-415); RED BLOOD COUNT 4.15 10^6/ul (4.70-6.10); RED CELL DISTRIBUTION WIDTH 15.2 % (11.5-14.5)
[2019-02-15 05:52] LABS: WHITE BLOOD COUNT 19.6 10^3/ul (4.8-10.8)
[2019-02-15 06:12] LABS: PARTIAL THROMBOPLASTIN TIME 66.5 Sec (23.0-35.0)
[2019-02-15 06:13] LABS: ALBUMIN 3.9 g/dl (3.3-4.9); ALKALINE PHOSPHATASE 125 IU/L (42-121); ANION GAP 31 (5-13); BILIRUBIN,INDIRECT 0.8 mg/dl (0-1.1); BILIRUBIN,TOTAL 1.8 mg/dl (0.2-1.3); BLOOD UREA NITROGEN 50 mg/dl (7-20); CALCIUM 7.2 mg/dl (8.4-10.2); CARBON DIOXIDE 12 mmol/L (21-31); CHLORIDE 90 mmol/L (97-110); CREATININE 5.06 mg/dl (0.61-1.24); Estimated GFR 14 mL/min (>60); GLUCOSE 102 mg/dl (70-220); SODIUM 133 mmol/L (135-144); TOTAL PROTEIN 6.9 g/dl (6.1-8.1)
[2019-02-15 06:14] LABS: CHOLESTEROL 130 mg/dl (100-200)
[2019-02-15 06:14] LABS: CHOL/HDL RATIO 6.5 RATIO; CREATINE KINASE 273 IU/L (23-200); HDL CHOLESTEROL 20 mg/dl (30-78); LDL CHOLESTEROL,CALCULATED 74 mg/dl; TRIGLYCERIDES 179 mg/dl (0-149)
[2019-02-15 06:17] LABS: POTASSIUM 6.8 mmol/L (3.5-5.1)
[2019-02-15 06:17] LABS: AMMONIA 28 umol/l (9-30)
[2019-02-15 06:21] LABS: CK INDEX 2.2
[2019-02-15 06:21] LABS: LACTIC ACID 17.9 mmol/L (0.5-2.0)
[2019-02-15 06:24] LABS: ETHANOL < 10.0 mg/dl (0-0)
[2019-02-15 06:24] LABS: CK-MB 6.14 ng/ml (0.0-2.4); TROPONIN-I 0.892 ng/ml (0.000-0.120)
[2019-02-15] MEDS ORDERED: DEXTROSE 50% 50 ML SYRINGE IV (06:30)
[2019-02-15] MEDS ORDERED: ETOMIDATE 20 MG INJ (06:57)
[2019-02-15] MEDS ORDERED: SUCCINYLCHOLINE CHLORIDE 100 MG/5 ML SYG IV (06:57)
[2019-02-15] MEDS ORDERED: PIPER-TAZO 3.375 GM IV (PMX) 100 ML IVPB (07:00)
[2019-02-15 07:06] LABS: ALANINE AMINOTRANSFERASE 8876 IU/L (13-69)
[2019-02-15 07:18] LABS: ASPARTATE AMINO TRANSFERASE > 7500 IU/L (15-46)
[2019-02-15] MEDS: ALBUTEROL 0.083% (NEB) 2.5 MG/3 ML AMP HHN ×2 (07:21→07:46)
[2019-02-15 07:22] LABS: ALBUMIN 3.9 g/dl (3.3-4.9); ALBUMIN/GLOBULIN RATIO 1.25; ALKALINE PHOSPHATASE 126 IU/L (42-121); ANION GAP 31 (5-13); BILIRUBIN,INDIRECT 0.8 mg/dl (0-1.1); BILIRUBIN,TOTAL 1.9 mg/dl (0.2-1.3); BLOOD UREA NITROGEN 50 mg/dl (7-20); CARBON DIOXIDE 12 mmol/L (21-31); CHLORIDE 90 mmol/L (97-110); CREATININE 5.08 mg/dl (0.61-1.24); Estimated GFR 14 mL/min (>60); GLUCOSE 99 mg/dl (70-220); SODIUM 133 mmol/L (135-144)
[2019-02-15 07:29] LABS: PROTIME > 100.0 Sec (11.9-14.9); PT RATIO 7.8
[2019-02-15 07:30] LABS: INR > 10.00; POTASSIUM 6.4 mmol/L (3.5-5.1)
[2019-02-15] MEDS: HALOPERIDOL 5 MG INJ IM (07:30)
[2019-02-15] MEDS: SODIUM BICARBONATE (IV ADD) 100 MEQ in DEXTROSE 5% 1,000 ML IV ×3 (07:42→20:46)
[2019-02-15] MEDS: DEXTROSE 50% 50 ML SYRINGE IV (07:44)
[2019-02-15] MEDS: INSULIN REGULAR, HUMAN 100 UNIT/1 ML 3ML VIAL IVP (07:47)
[2019-02-15] MEDS: CALCIUM GLUCONATE 10% 1 GM in DEXTROSE 5% 100 ML IVPB (07:56)
[2019-02-15 07:59] LABS: ALANINE AMINOTRANSFERASE 8984 IU/L (13-69); ASPARTATE AMINO TRANSFERASE > 7500 IU/L (15-46)
[2019-02-15] MEDS: LORAZEPAM 2 MG INJ IV (08:03)
[2019-02-15] MEDS ORDERED: MIDAZOLAM (DRIP) 50 mg/50 mL 50 ML IV (08:30)
[2019-02-15 09:02] LABS: AMPHETAMINE/METHAMPHETAMINE Negative (NEGATIVE); BARBITURATES Negative (NEGATIVE); BENZODIAZEPINES Negative (NEGATIVE); CANNABINOIDS Positive (NEGATIVE); COCAINE Negative (NEGATIVE); OPIATES Negative (NEGATIVE)
[2019-02-15] MEDS: MIDAZOLAM (DRIP) 50 mg/50 mL 50 ML IV ×2 (09:21→16:24)
[2019-02-15] MEDS: METOPROLOL (XL) 25 MG TAB PO ×2 (10:12→20:45)
[2019-02-15] MEDS: PIPER-TAZO 2.25 GM (PMX) 50 ML IVPB ×3 (10:15→22:37)
[2019-02-15 10:17] LABS: ANION GAP 28 (5-13); BLOOD UREA NITROGEN 52 mg/dl (7-20); CALCIUM 6.4 mg/dl (8.4-10.2); CARBON DIOXIDE 11 mmol/L (21-31); CHLORIDE 89 mmol/L (97-110); CREATININE 5.11 mg/dl (0.61-1.24); Estimated GFR 14 mL/min (>60); GLUCOSE 223 mg/dl (70-220); SODIUM 128 mmol/L (135-144)
[2019-02-15] MEDS: SOD CHLORIDE 0.9% 250 ML IV* (10:18)
[2019-02-15 10:21] LABS: AADO2 Arterial 500.2 mmHg (7.0-24.0); Arterial Base Excess -16.5 mmol/L (-3.0-3); Arterial Blood Gas Oxygen Sat 98.9 mmHG (95.0-98.0); Arterial COHb 0 % (0.0-3.0); Arterial Fraction of Oxyhgb 98.6 % (93.0-99.0); Arterial MetHb 0.3 % (0.0-1.5); Arterial pCO2 21.5 mmhg (35-45); MODE VENT - AC; Site Right Brachial
[2019-02-15 10:24] LABS: POTASSIUM 7.2 mmol/L (3.5-5.1)
[2019-02-15] MEDS: INSULIN ASPART [NOVOLOG] 3 ML PEN SC ×4 (10:37→20:52)
[2019-02-15 10:38] LABS: PROTIME > 100.0 Sec (11.9-14.9); PT RATIO 7.8
[2019-02-15 10:39] LABS: LACTIC ACID 14.9 mmol/L (0.5-2.0)
[2019-02-15 10:39] LABS: INR > 10.00
[2019-02-15 10:41] LABS: PARTIAL THROMBOPLASTIN TIME 75.5 Sec (23.0-35.0)
[2019-02-15] MEDS ORDERED: NA BICARBONATE 8.4% 50 ML SYG (10:46)
[2019-02-15] MEDS: NA BICARBONATE 8.4% 50 ML SYG IV (10:51)
[2019-02-15] MEDS ORDERED: SODIUM CHLORIDE 0.9% 1L BAG IV (11:00)
[2019-02-15] MEDS: PHYTONADIONE 10 MG in DEXTROSE 5% 50 ML IVPB ×2 (11:31→22:37)
[2019-02-15] MEDS: LINEZOLID 600 MG/300 ML (PMX) 300 ML IVPB ×2 (12:05→20:44)
[2019-02-15] MEDS: NA POLYST SULFON 15 GM/60 ML BTL PO (14:16)
[2019-02-15] MEDS: HEPARIN 1000 UNITS/ML 10 ML INJ CATHETER (15:28)
[2019-02-15 16:19] LABS: WHITE BLOOD COUNT 14.2 10^3/ul (4.8-10.8)
[2019-02-15 16:19] LABS: HEMATOCRIT 32.7 % (42.0-52.0); HEMOGLOBIN 10.7 g/dl (14.0-18.0); MEAN CORPUSCULAR HEMOGLOBIN 27.5 pg (29.0-33.0); MEAN CORPUSCULAR HGB CONC 32.7 g/dl (32.0-37.0); MEAN CORPUSCULAR VOLUME 84.1 fl (82.0-101.0); MEAN PLATELET VOLUME 11.7 fl (7.4-10.4); NUCLEATED RED BLOOD CELLS% 2.7 /100WBC (0.0-0.0); PLATELET COUNT 168 10^3/UL (140-415); POSITIVE DIFF @See below; RED BLOOD COUNT 3.89 10^6/ul (4.70-6.10); RED CELL DISTRIBUTION WIDTH 14.6 % (11.5-14.5)
[2019-02-15 16:20] LABS: ADD MAN DIFF? YES
[2019-02-15 16:38] LABS: PARTIAL THROMBOPLASTIN TIME 62.3 Sec (23.0-35.0)
[2019-02-15 16:39] LABS: ANION GAP 21 (5-13); BLOOD UREA NITROGEN 41 mg/dl (7-20); CALCIUM 6.3 mg/dl (8.4-10.2); CARBON DIOXIDE 23 mmol/L (21-31); CHLORIDE 89 mmol/L (97-110); CREATININE 3.57 mg/dl (0.61-1.24); Estimated GFR 21 mL/min (>60); GLUCOSE 200 mg/dl (70-220); POTASSIUM 4.8 mmol/L (3.5-5.1); SODIUM 133 mmol/L (135-144)
[2019-02-15 16:47] LABS: LACTIC ACID 8.4 mmol/L (0.5-2.0)
[2019-02-15 17:10] LABS: PROTIME > 100.0 Sec (11.9-14.9); PT RATIO 7.8
[2019-02-15 17:13] LABS: INR > 10.00
[2019-02-15] MEDS ORDERED: PANTOPRAZOLE IV 80 MG in SOD CHLORIDE 0.9% 100 ML IVPB (18:00)
[2019-02-15 19:22] LABS: BAND NEUTROPHILS #M 0.4 10^3/ul (0.0-0.6); BAND NEUTROPHILS % (M) 3 % (0-4); ERYTHROBLAST% (NRBC) (M) 7 % (0-0); GIANT THROMBO% (M) 4 % (0-0); LYMPHOCYTES #M 0.7 10^3/ul (0.8-2.9); LYMPHOCYTES % (M) 5 % (15-51); SEG NEUT #M 13.1 10^3/ul (1.6-7.5); SEGMENTED NEUTROPHILS (M) % 92 % (39-77)
[2019-02-15 19:23] LABS: PLATELET ESTIMATE NORMAL
[2019-02-15] MEDS: PANTOPRAZOLE IV 80 MG in SOD CHLORIDE 0.9% 100 ML IV (20:44)
[2019-02-15] MEDS: INSULIN GLARGINE [LANTus] (100 UNITS/ML) SYG SC (20:50)
[2019-02-15 21:08] LABS: Allen Test ACCEPTAB; Arterial COHb 0.3 % (0.0-3.0); Arterial Fraction of Oxyhgb 98.5 % (93.0-99.0); Arterial HCO3 26.1 mmol/L (22.0-26.0); Arterial MetHb 0.2 % (0.0-1.5); Arterial pCO2 31.1 mmhg (35-45); MODE VENT - AC; Site Right Radial
[2019-02-15 23:42] LABS: TYPE AND SCREEN 1 1
[2019-02-16 01:14] LABS: LACTIC ACID 6.5 mmol/L (0.5-2.0)
[2019-02-16] MEDS: MIDAZOLAM (DRIP) 50 mg/50 mL 50 ML IV ×2 (03:28→19:33)
[2019-02-16] MEDS: PANTOPRAZOLE IV 80 MG in SOD CHLORIDE 0.9% 100 ML IV ×3 (04:00→15:57)
[2019-02-16 05:33] LABS: ADD MAN DIFF? NO
[2019-02-16 05:44] LABS: BASOPHILS % 0.2 % (0.0-2.0); HEMATOCRIT 30.1 % (42.0-52.0); HEMOGLOBIN 9.7 g/dl (14.0-18.0); LYMPHOCYTES # 1.3 10^3/ul (0.8-2.9); LYMPHOCYTES % 11.4 % (15.0-51.0); MEAN CORPUSCULAR HEMOGLOBIN 27.3 pg (29.0-33.0); MEAN CORPUSCULAR HGB CONC 32.2 g/dl (32.0-37.0); MEAN CORPUSCULAR VOLUME 84.8 fl (82.0-101.0); MEAN PLATELET VOLUME 12.5 fl (7.4-10.4); MONOCYTE # 0.3 10^3/ul (0.3-0.9); MONOCYTES % 2.5 % (0.0-11.0); NEUTROPHIL # 9.8 10^3/ul (1.6-7.5); NEUTROPHILS % 85.4 % (39.0-77.0); NUCLEATED RED BLOOD CELLS # 0.8 10^3/ul (0.0-0.0); NUCLEATED RED BLOOD CELLS% 6.6 /100WBC (0.0-0.0); PLATELET COUNT 142 10^3/UL (140-415); RED BLOOD COUNT 3.55 10^6/ul (4.70-6.10); RED CELL DISTRIBUTION WIDTH 14.2 % (11.5-14.5)
[2019-02-16 05:44] LABS: WHITE BLOOD COUNT 11.5 10^3/ul (4.8-10.8)
[2019-02-16 06:07] LABS: PLATELET COUNT 149 10^3/UL (140-415)
[2019-02-16] MEDS: PIPER-TAZO 2.25 GM (PMX) 50 ML IVPB ×3 (06:07→22:04)
[2019-02-16 06:18] LABS: PARTIAL THROMBOPLASTIN TIME 49.1 Sec (23.0-35.0)
[2019-02-16 06:19] LABS: THROMBIN TIME 18.3 SEC (13.8-19.1)
[2019-02-16 06:20] LABS: PARTIAL THROMBOPLASTIN TIME 49.7 Sec (23.0-35.0)
[2019-02-16 06:21] LABS: PT RATIO 7.3
[2019-02-16 06:30] LABS: INR > 10.00
[2019-02-16 06:31] LABS: PROTIME > 100.0 Sec (11.9-14.9); PT RATIO 7.8
[2019-02-16 06:34] LABS: INR > 10.00
[2019-02-16 06:35] LABS: ALBUMIN 3.8 g/dl (3.3-4.9); ALBUMIN/GLOBULIN RATIO 1.26; ALKALINE PHOSPHATASE 151 IU/L (42-121); ANION GAP 21 (5-13); BILIRUBIN,INDIRECT 1.5 mg/dl (0-1.1); BILIRUBIN,TOTAL 2.4 mg/dl (0.2-1.3); BLOOD UREA NITROGEN 52 mg/dl (7-20); CARBON DIOXIDE 30 mmol/L (21-31); CHLORIDE 86 mmol/L (97-110); CREATININE 4.64 mg/dl (0.61-1.24); Estimated GFR 15 mL/min (>60); GLUCOSE 145 mg/dl (70-220); POTASSIUM 4.4 mmol/L (3.5-5.1); SODIUM 137 mmol/L (135-144); TOTAL PROTEIN 6.8 g/dl (6.1-8.1)
[2019-02-16 06:37] LABS: CALCIUM 5.5 mg/dl (8.4-10.2)
[2019-02-16 06:39] LABS: CK-MB 7.99 ng/ml (0.0-2.4); TROPONIN-I 0.832 ng/ml (0.000-0.120)
[2019-02-16 06:42] LABS: CK INDEX 0.8; CREATINE KINASE 1036 IU/L (23-200)
[2019-02-16 06:44] LABS: D-DIMER > 10000.00 ng/ml (<460)
[2019-02-16 07:09] LABS: AADO2 Arterial 95.8 mmHg (7.0-24.0); Allen Test ACCEPTAB; Arterial Blood Gas Oxygen Sat 98.4 mmHG (95.0-98.0); Arterial COHb 0.3 % (0.0-3.0); Arterial HCO3 29.2 mmol/L (22.0-26.0); Arterial MetHb 0.1 % (0.0-1.5); Arterial pCO2 37.2 mmhg (35-45); MODE VENT - AC; Site Left Radial
[2019-02-16 07:11] LABS: ALANINE AMINOTRANSFERASE 6223 IU/L (13-69); ASPARTATE AMINO TRANSFERASE > 7500 IU/L (15-46)
[2019-02-16] MEDS: INSULIN ASPART [NOVOLOG] 3 ML PEN SC ×4 (07:35→20:22)
[2019-02-16] MEDS: NICOTINE (21 MG/24 HR) PATCH TRANSDERM (08:38)
[2019-02-16] MEDS: CALCIUM GLUCONATE 10% 2 GM in DEXTROSE 5% 100 ML IVPB (08:38)
[2019-02-16] MEDS: LINEZOLID 600 MG/300 ML (PMX) 300 ML IVPB ×2 (08:39→20:22)
[2019-02-16] MEDS: METOPROLOL (XL) 25 MG TAB PO (10:23)
[2019-02-16 11:46] LABS: MITOCHONDRIAL TB NEGATIVE (NEGATIVE); SMOOTH MUSCLE AB SCREEN NEGATIVE (NEGATIVE)
[2019-02-16] MEDS: SOD FERRIC GLUC COMPLX 125 MG in SOD CHLORIDE 0.9% 100 ML IVPB (12:41)
[2019-02-16] MEDS: DESMOPRESSIN 20 MCG in SOD CHLORIDE 0.9% 50 ML IVPB (16:37)
[2019-02-16] MEDS: LIDOCAINE 1% (MPF) 5 ML VIAL SC (16:58)
[2019-02-16] MEDS: PHYTONADIONE 10 MG in DEXTROSE 5% 50 ML IVPB (16:59)
[2019-02-16 18:58] LABS: ANA SCREEN POSITIVE (NEGATIVE)
[2019-02-16] MEDS: HEPARIN 1000 UNITS/ML 10 ML INJ CATHETER (19:16)
[2019-02-16] MEDS: METOPROLOL 25 MG TAB PO (20:22)
[2019-02-16] MEDS: INSULIN GLARGINE [LANTus] (100 UNITS/ML) SYG SC (20:25)
[2019-02-17] MEDS: MIDAZOLAM (DRIP) 50 mg/50 mL 50 ML IV (00:28)
[2019-02-17] MEDS: PIPER-TAZO 2.25 GM (PMX) 50 ML IVPB ×3 (05:20→21:58)
[2019-02-17] MEDS: PANTOPRAZOLE IV 80 MG in SOD CHLORIDE 0.9% 100 ML IV ×2 (07:19→18:00)
[2019-02-17 08:19] LABS: MEAN CORPUSCULAR HEMOGLOBIN 27.5 pg (29.0-33.0); MEAN CORPUSCULAR HGB CONC 33.3 g/dl (32.0-37.0); MEAN CORPUSCULAR VOLUME 82.6 fl (82.0-101.0); MEAN PLATELET VOLUME 11.9 fl (7.4-10.4); NUCLEATED RED BLOOD CELLS% 3.2 /100WBC (0.0-0.0); PLATELET COUNT 120 10^3/UL (140-415); POSITIVE DIFF @See below; RED BLOOD COUNT 3.63 10^6/ul (4.70-6.10); RED CELL DISTRIBUTION WIDTH 14.2 % (11.5-14.5)
[2019-02-17 08:26] LABS: ADD MAN DIFF? YES
[2019-02-17 08:36] LABS: ANION GAP 12 (5-13); BLOOD UREA NITROGEN 50 mg/dl (7-20); CALCIUM 7.1 mg/dl (8.4-10.2); CARBON DIOXIDE 28 mmol/L (21-31); CHLORIDE 97 mmol/L (97-110); CREATININE 5.21 mg/dl (0.61-1.24); Estimated GFR 13 mL/min (>60); GLUCOSE 98 mg/dl (70-220); POTASSIUM 4.8 mmol/L (3.5-5.1); SODIUM 137 mmol/L (135-144)
[2019-02-17] MEDS: METOPROLOL 25 MG TAB PO ×2 (09:00→21:24)
[2019-02-17] MEDS: INSULIN ASPART [NOVOLOG] 3 ML PEN SC ×4 (09:00→21:00)
[2019-02-17] MEDS: NICOTINE (21 MG/24 HR) PATCH TRANSDERM (09:12)
[2019-02-17] MEDS: LINEZOLID 600 MG/300 ML (PMX) 300 ML IVPB ×2 (09:12→21:25)
[2019-02-17 10:21] LABS: ANISOCYTOSIS 1+ (0-0); BAND NEUTROPHILS #M 0.8 10^3/ul (0.0-0.6); BAND NEUTROPHILS % (M) 8 % (0-4); ERYTHROBLAST% (NRBC) (M) 2 % (0-0); GIANT THROMBO% (M) 1 % (0-0); HYPOCHROMASIA 1+ (0-0); LYMPHOCYTES #M 0.6 10^3/ul (0.8-2.9); LYMPHOCYTES % (M) 6 % (15-51); MONOCYTE #M 0.2 10^3/ul (0.3-0.9); MONOCYTES % (M) 2 % (0-11); OVALOCYTES 1+ (0-0); PLATELET ESTIMATE DECREASED; POIKILOCYTOSIS 2+ (0-0); POLYCHROMASIA 1+ (0-0); REACTIVE LYMPHOCYTES #M 0.1 10^3/ul (0.0-0.0); REACTIVE LYMPHOCYTES% (M) 1 % (0-0); SEG NEUT #M 9.2 10^3/ul (1.6-7.5); SEGMENTED NEUTROPHILS (M) % 83 % (39-77); TARGET CELLS 2+ (0-0)
[2019-02-17] MEDS: AMIODARONE 150MG/D5W BOLUS 100 ML IV (13:42)
[2019-02-17] MEDS: AMIODARONE 900 MG in DEXTROSE 5% 482 ML IV (13:43)
[2019-02-17 15:27] LABS: PROTIME 58.6 Sec (11.9-14.9); PT RATIO 4.6
[2019-02-17 15:28] LABS: PARTIAL THROMBOPLASTIN TIME 39.4 Sec (23.0-35.0)
[2019-02-17 15:44] LABS: INR 6.77
[2019-02-17] MEDS: HEPARIN 1000 UNITS/ML 10 ML INJ CATHETER (15:50)
[2019-02-17] MEDS: SOD FERRIC GLUC COMPLX 125 MG in SOD CHLORIDE 0.9% 100 ML IVPB (15:56)
[2019-02-17] MEDS: PHYTONADIONE 10 MG/ML INJ IM (17:58)
[2019-02-17] MEDS: PROPOFOL 100 ML IV (17:59)
[2019-02-17] MEDS: INSULIN GLARGINE [LANTus] (100 UNITS/ML) SYG SC (22:12)
[2019-02-18] MEDS: INSULIN ASPART [NOVOLOG] 3 ML PEN SC ×6 (00:56→20:13)
[2019-02-18 05:16] LABS: ADD MAN DIFF? NO
[2019-02-18 05:20] LABS: BASOPHILS % 0.2 % (0.0-2.0); EOSINOPHILS # 0.1 10^3/ul (0.0-0.5); EOSINOPHILS % 0.6 % (0.0-7.0); HEMATOCRIT 30.3 % (42.0-52.0); HEMOGLOBIN 10.3 g/dl (14.0-18.0); LYMPHOCYTES # 1.1 10^3/ul (0.8-2.9); LYMPHOCYTES % 10.5 % (15.0-51.0); MEAN CORPUSCULAR HEMOGLOBIN 27.9 pg (29.0-33.0); MEAN CORPUSCULAR VOLUME 82.1 fl (82.0-101.0); MEAN PLATELET VOLUME 12.6 fl (7.4-10.4); MONOCYTE # 0.2 10^3/ul (0.3-0.9); MONOCYTES % 2.2 % (0.0-11.0); NEUTROPHIL # 8.8 10^3/ul (1.6-7.5); NEUTROPHILS % 86.1 % (39.0-77.0); NUCLEATED RED BLOOD CELLS # 0.1 10^3/ul (0.0-0.0); NUCLEATED RED BLOOD CELLS% 1.1 /100WBC (0.0-0.0); PLATELET COUNT 124 10^3/UL (140-415); POSITIVE DIFF @See below; RED BLOOD COUNT 3.69 10^6/ul (4.70-6.10); RED CELL DISTRIBUTION WIDTH 14.3 % (11.5-14.5)
[2019-02-18 05:20] LABS: WHITE BLOOD COUNT 10.2 10^3/ul (4.8-10.8)
[2019-02-18] MEDS: PANTOPRAZOLE IV 80 MG in SOD CHLORIDE 0.9% 100 ML IV ×2 (05:28→16:28)
[2019-02-18] MEDS: AMIODARONE 900 MG in DEXTROSE 5% 482 ML IV (05:29)
[2019-02-18] MEDS: PIPER-TAZO 2.25 GM (PMX) 50 ML IVPB ×3 (05:34→21:48)
[2019-02-18 05:39] LABS: INR 4.46; PARTIAL THROMBOPLASTIN TIME 38.7 Sec (23.0-35.0); PROTIME 42.4 Sec (11.9-14.9); PT RATIO 3.3
[2019-02-18 05:52] LABS: LACTIC ACID 3.2 mmol/L (0.5-2.0)
[2019-02-18 05:57] LABS: ALBUMIN 3.3 g/dl (3.3-4.9); ALBUMIN/GLOBULIN RATIO 1.06; ALKALINE PHOSPHATASE 173 IU/L (42-121); ANION GAP 13 (5-13); BILIRUBIN,INDIRECT 1.4 mg/dl (0-1.1); BILIRUBIN,TOTAL 3.6 mg/dl (0.2-1.3); BLOOD UREA NITROGEN 44 mg/dl (7-20); CALCIUM 8.6 mg/dl (8.4-10.2); CARBON DIOXIDE 27 mmol/L (21-31); CHLORIDE 97 mmol/L (97-110); CREATININE 5.04 mg/dl (0.61-1.24); Estimated GFR 14 mL/min (>60); GLUCOSE 107 mg/dl (70-220); POTASSIUM 4.9 mmol/L (3.5-5.1); SODIUM 137 mmol/L (135-144); TOTAL PROTEIN 6.4 g/dl (6.1-8.1)
[2019-02-18] MEDS: PROPOFOL 100 ML IV ×3 (06:07→19:40)
[2019-02-18 06:24] LABS: ALANINE AMINOTRANSFERASE 3365 IU/L (13-69); ASPARTATE AMINO TRANSFERASE 3566 IU/L (15-46)
[2019-02-18 07:33] LABS: ANISOCYTOSIS 2+ (0-0); BAND NEUTROPHILS #M 0.4 10^3/ul (0.0-0.6); BAND NEUTROPHILS % (M) 4 % (0-4); BURR CELLS 1+ (0-0); ERYTHROBLAST% (NRBC) (M) 4 % (0-0); LYMPHOCYTES #M 2.1 10^3/ul (0.8-2.9); LYMPHOCYTES % (M) 21 % (15-51); OVALOCYTES 1+ (0-0); PLATELET ESTIMATE DECREASED; POIKILOCYTOSIS 2+ (0-0); POLYCHROMASIA 2+ (0-0); REACTIVE LYMPHOCYTES #M 0.2 10^3/ul (0.0-0.0); REACTIVE LYMPHOCYTES% (M) 2 % (0-0); SEG NEUT #M 7.5 10^3/ul (1.6-7.5); SEGMENTED NEUTROPHILS (M) % 73 % (39-77); SMUDGE%M 43 % (0-0); TARGET CELLS 1+ (0-0)
[2019-02-18] MEDS: METOPROLOL 25 MG TAB PO ×2 (09:00→20:12)
[2019-02-18] MEDS: LINEZOLID 600 MG/300 ML (PMX) 300 ML IVPB ×2 (09:18→20:12)
[2019-02-18] MEDS: NICOTINE (21 MG/24 HR) PATCH TRANSDERM (09:18)
[2019-02-18] MEDS: PHYTONADIONE 5 MG in DEXTROSE 5% 50 ML IVPB (13:10)
[2019-02-18] MEDS: SOD FERRIC GLUC COMPLX 125 MG in SOD CHLORIDE 0.9% 100 ML IVPB (13:18)
[2019-02-18] MEDS: METOPROLOL 5 MG INJ IV (20:12)
[2019-02-18] MEDS: INSULIN GLARGINE [LANTus] (100 UNITS/ML) SYG SC (20:20)
[2019-02-19] MEDS: METOPROLOL 5 MG INJ IV ×4 (00:27→21:34)
[2019-02-19] MEDS: INSULIN ASPART [NOVOLOG] 3 ML PEN SC ×6 (00:32→20:20)
[2019-02-19] MEDS: PANTOPRAZOLE IV 80 MG in SOD CHLORIDE 0.9% 100 ML IV ×3 (03:28→21:27)
[2019-02-19 05:12] LABS: AADO2 Arterial 82.8 mmHg (7.0-24.0); Allen Test ACCEPTAB; Arterial Base Excess -1.1 mmol/L (-3.0-3); Arterial COHb 0.3 % (0.0-3.0); Arterial Fraction of Oxyhgb 96.5 % (93.0-99.0); Arterial HCO3 22.3 mmol/L (22.0-26.0); Arterial MetHb 0.2 % (0.0-1.5); Arterial pCO2 32.7 mmhg (35-45); MODE VENT - AC; Site Right Radial
[2019-02-19 05:36] LABS: ADD MAN DIFF? NO
[2019-02-19 05:52] LABS: ABNORMAL IP MESSAGE 1; BASOPHILS % 0.1 % (0.0-2.0); EOSINOPHILS # 0.1 10^3/ul (0.0-0.5); EOSINOPHILS % 0.7 % (0.0-7.0); HEMATOCRIT 29.3 % (42.0-52.0); HEMOGLOBIN 10.1 g/dl (14.0-18.0); LYMPHOCYTES # 1.3 10^3/ul (0.8-2.9); LYMPHOCYTES % 12.5 % (15.0-51.0); MEAN CORPUSCULAR HEMOGLOBIN 27.7 pg (29.0-33.0); MEAN CORPUSCULAR HGB CONC 34.5 g/dl (32.0-37.0); MEAN CORPUSCULAR VOLUME 80.5 fl (82.0-101.0); MEAN PLATELET VOLUME 13.2 fl (7.4-10.4); MONOCYTE # 0.4 10^3/ul (0.3-0.9); MONOCYTES % 3.7 % (0.0-11.0); NEUTROPHIL # 8.6 10^3/ul (1.6-7.5); NEUTROPHILS % 82.7 % (39.0-77.0); NUCLEATED RED BLOOD CELLS # 0.1 10^3/ul (0.0-0.0); PLATELET COUNT 107 10^3/UL (140-415); POSITIVE DIFF @See below; RED BLOOD COUNT 3.64 10^6/ul (4.70-6.10); RED CELL DISTRIBUTION WIDTH 14.6 % (11.5-14.5)
[2019-02-19 05:52] LABS: WHITE BLOOD COUNT 10.4 10^3/ul (4.8-10.8)
[2019-02-19 06:02] LABS: AMMONIA 26 umol/l (9-30); LACTIC ACID 1.9 mmol/L (0.5-2.0)
[2019-02-19 06:18] LABS: PHOSPHORUS 8.4 mg/dl (2.5-4.9)
[2019-02-19 06:18] LABS: MAGNESIUM 2.2 mg/dl (1.7-2.5)
[2019-02-19 06:20] LABS: INR 2.73; PT RATIO 2.3
[2019-02-19 06:21] LABS: PARTIAL THROMBOPLASTIN TIME 40.4 Sec (23.0-35.0)
[2019-02-19] MEDS: PIPER-TAZO 2.25 GM (PMX) 50 ML IVPB (06:28)
[2019-02-19 07:53] LABS: ALBUMIN 3.1 g/dl (3.3-4.9); ALBUMIN/GLOBULIN RATIO 0.93; ALKALINE PHOSPHATASE 135 IU/L (42-121); ANION GAP 14 (5-13); BILIRUBIN,INDIRECT 1.1 mg/dl (0-1.1); BILIRUBIN,TOTAL 4.3 mg/dl (0.2-1.3); BLOOD UREA NITROGEN 71 mg/dl (7-20); CALCIUM 8.3 mg/dl (8.4-10.2); CARBON DIOXIDE 25 mmol/L (21-31); CHLORIDE 96 mmol/L (97-110); CREATININE 7.81 mg/dl (0.61-1.24); Estimated GFR 8 mL/min (>60); GLUCOSE 84 mg/dl (70-220); POTASSIUM 5.2 mmol/L (3.5-5.1); SODIUM 135 mmol/L (135-144); TOTAL PROTEIN 6.4 g/dl (6.1-8.1)
[2019-02-19 08:18] LABS: ALANINE AMINOTRANSFERASE 2097 IU/L (13-69)
[2019-02-19] MEDS: NICOTINE (21 MG/24 HR) PATCH TRANSDERM (09:00)
[2019-02-19] MEDS: METOPROLOL 25 MG TAB PO ×3 (09:00→20:38)
[2019-02-19] MEDS: ALBUMIN HUMAN 25% 100 ML IV (09:07)
[2019-02-19] MEDS: PHENYLephrine 20MG IN 250 ML 250 ML IV (09:27)
[2019-02-19] MEDS: HEPARIN 1000 UNITS/ML 10 ML INJ CATHETER (11:25)
[2019-02-19] MEDS ORDERED: HYDROGEN PEROXIDE 118 ML TOP (13:00)
[2019-02-19] MEDS: SOD FERRIC GLUC COMPLX 125 MG in SOD CHLORIDE 0.9% 100 ML IVPB (13:27)
[2019-02-19] MEDS ORDERED: WATER TOP (14:00)
[2019-02-19] MEDS ORDERED: FAT EMULSION 20% 250 ML IV (14:00)
[2019-02-19] MEDS ORDERED: HYDROGEN PEROXIDE TOP (14:00)
[2019-02-19] MEDS: HYDROGEN PEROXIDE TOP ×2 (17:15→21:28)
[2019-02-19] MEDS: WATER TOP ×2 (17:15→21:28)
[2019-02-19] MEDS: TPN 1,000 ML IV (17:15)
[2019-02-19 18:26] LABS: ANA PATTERN HOMOGENEOUS
[2019-02-19] MEDS: PROPOFOL 100 ML IV (18:51)
[2019-02-19] MEDS: DIGOXIN 500 MCG INJ IV (18:51)
[2019-02-19] MEDS: DILTIAZEM 25 MG INJ IV ×2 (20:33→22:50)
[2019-02-19] MEDS: INSULIN GLARGINE [LANTus] (100 UNITS/ML) SYG SC (21:40)
[2019-02-20] MEDS: DIGOXIN 500 MCG INJ IV (00:37)
[2019-02-20] MEDS: INSULIN ASPART [NOVOLOG] 3 ML PEN SC ×6 (00:45→20:33)
[2019-02-20] MEDS: METOPROLOL 5 MG INJ IV ×6 (01:05→20:29)
[2019-02-20] MEDS: DILTIAZEM 25 MG INJ IV ×3 (02:22→21:12)
[2019-02-20] MEDS: PROPOFOL 100 ML IV ×2 (04:00→19:29)
[2019-02-20 05:09] LABS: ADD MAN DIFF? NO
[2019-02-20 05:18] LABS: WHITE BLOOD COUNT 14.9 10^3/ul (4.8-10.8)
[2019-02-20 05:18] LABS: ABNORMAL IP MESSAGE 1; BASOPHILS % 0.1 % (0.0-2.0); EOSINOPHILS # 0.1 10^3/ul (0.0-0.5); EOSINOPHILS % 0.5 % (0.0-7.0); HEMATOCRIT 30.5 % (42.0-52.0); HEMOGLOBIN 10.5 g/dl (14.0-18.0); LYMPHOCYTES # 1.3 10^3/ul (0.8-2.9); LYMPHOCYTES % 8.5 % (15.0-51.0); MEAN CORPUSCULAR HEMOGLOBIN 27.1 pg (29.0-33.0); MEAN CORPUSCULAR HGB CONC 34.4 g/dl (32.0-37.0); MEAN CORPUSCULAR VOLUME 78.8 fl (82.0-101.0); MONOCYTE # 0.9 10^3/ul (0.3-0.9); MONOCYTES % 5.9 % (0.0-11.0); NEUTROPHIL # 12.6 10^3/ul (1.6-7.5); NEUTROPHILS % 84.5 % (39.0-77.0); NUCLEATED RED BLOOD CELLS # 0.2 10^3/ul (0.0-0.0); NUCLEATED RED BLOOD CELLS% 1.3 /100WBC (0.0-0.0); PLATELET COUNT 85 10^3/UL (140-415); POSITIVE DIFF @See below; RED BLOOD COUNT 3.87 10^6/ul (4.70-6.10); RED CELL DISTRIBUTION WIDTH 14.6 % (11.5-14.5)
[2019-02-20 05:37] LABS: INR 1.93; PROTIME 22.1 Sec (11.9-14.9); PT RATIO 1.7
[2019-02-20 05:45] LABS: ANION GAP 14 (5-13); BLOOD UREA NITROGEN 68 mg/dl (7-20); CALCIUM 8.3 mg/dl (8.4-10.2); CARBON DIOXIDE 24 mmol/L (21-31); CHLORIDE 96 mmol/L (97-110); CREATININE 7.23 mg/dl (0.61-1.24); Estimated GFR 9 mL/min (>60); GLUCOSE 145 mg/dl (70-220); MAGNESIUM 2.2 mg/dl (1.7-2.5); PHOSPHORUS 6.9 mg/dl (2.5-4.9); POTASSIUM 5.3 mmol/L (3.5-5.1); SODIUM 134 mmol/L (135-144)
[2019-02-20 05:47] LABS: ALBUMIN 3.4 g/dl (3.3-4.9); ALKALINE PHOSPHATASE 147 IU/L (42-121); BILIRUBIN,INDIRECT 1.1 mg/dl (0-1.1); BILIRUBIN,TOTAL 4.2 mg/dl (0.2-1.3); TOTAL PROTEIN 6.4 g/dl (6.1-8.1)
[2019-02-20] MEDS: HYDROGEN PEROXIDE TOP ×3 (05:50→21:04)
[2019-02-20] MEDS: WATER TOP ×3 (05:50→21:04)
[2019-02-20 06:02] LABS: ALANINE AMINOTRANSFERASE 1544 IU/L (13-69); ASPARTATE AMINO TRANSFERASE 754 IU/L (15-46)
[2019-02-20] MEDS: PANTOPRAZOLE IV 80 MG in SOD CHLORIDE 0.9% 100 ML IV ×2 (08:02→19:51)
[2019-02-20] MEDS: METOPROLOL 25 MG TAB PO ×2 (09:00→20:27)
[2019-02-20] MEDS: TPN 1,000 ML IV (13:14)
[2019-02-20] MEDS: CLINDAMYCIN 600 MG/D5W (PMX) 50 ML IVPB ×2 (13:15→19:51)
[2019-02-20 15:11] LABS: HEMATOCRIT 29.5 % (42.0-52.0); HEMOGLOBIN 10.5 g/dl (14.0-18.0)
[2019-02-20] MEDS: SOD FERRIC GLUC COMPLX 125 MG in SOD CHLORIDE 0.9% 100 ML IVPB (15:43)
[2019-02-20] MEDS: INSULIN GLARGINE [LANTus] (100 UNITS/ML) SYG SC (20:41)
[2019-02-21] MEDS: CLINDAMYCIN 600 MG/D5W (PMX) 50 ML IVPB ×5 (00:29→23:17)
[2019-02-21] MEDS: METOPROLOL 5 MG INJ IV ×6 (00:30→20:24)
[2019-02-21] MEDS: INSULIN ASPART [NOVOLOG] 3 ML PEN SC ×6 (00:36→20:26)
[2019-02-21] MEDS: PROPOFOL 100 ML IV ×3 (04:00→19:44)
[2019-02-21 05:13] LABS: ADD MAN DIFF? NO
[2019-02-21 05:17] LABS: WHITE BLOOD COUNT 13.9 10^3/ul (4.8-10.8)
[2019-02-21 05:17] LABS: ABNORMAL IP MESSAGE 1; BASOPHILS % 0.1 % (0.0-2.0); EOSINOPHILS # 0.1 10^3/ul (0.0-0.5); EOSINOPHILS % 0.4 % (0.0-7.0); HEMATOCRIT 29.7 % (42.0-52.0); HEMOGLOBIN 10.4 g/dl (14.0-18.0); LYMPHOCYTES # 1.5 10^3/ul (0.8-2.9); LYMPHOCYTES % 10.5 % (15.0-51.0); MEAN CORPUSCULAR HEMOGLOBIN 27.1 pg (29.0-33.0); MEAN CORPUSCULAR VOLUME 77.3 fl (82.0-101.0); MONOCYTE # 1.6 10^3/ul (0.3-0.9); MONOCYTES % 11.5 % (0.0-11.0); NEUTROPHIL # 10.6 10^3/ul (1.6-7.5); NEUTROPHILS % 76.4 % (39.0-77.0); NUCLEATED RED BLOOD CELLS # 0.1 10^3/ul (0.0-0.0); PLATELET COUNT 57 10^3/UL (140-415); POSITIVE DIFF @See below; RED BLOOD COUNT 3.84 10^6/ul (4.70-6.10); RED CELL DISTRIBUTION WIDTH 14.4 % (11.5-14.5)
[2019-02-21 05:40] LABS: PHOSPHORUS 7.3 mg/dl (2.5-4.9)
[2019-02-21 05:40] LABS: MAGNESIUM 2.2 mg/dl (1.7-2.5)
[2019-02-21 05:41] LABS: ANION GAP 16 (5-13); BLOOD UREA NITROGEN 100 mg/dl (7-20); CALCIUM 7.8 mg/dl (8.4-10.2); CARBON DIOXIDE 21 mmol/L (21-31); CHLORIDE 96 mmol/L (97-110); Estimated GFR 7 mL/min (>60); GLUCOSE 128 mg/dl (70-220); SODIUM 133 mmol/L (135-144)
[2019-02-21] MEDS: PANTOPRAZOLE IV 80 MG in SOD CHLORIDE 0.9% 100 ML IV (05:57)
[2019-02-21] MEDS: WATER TOP ×3 (05:58→21:16)
[2019-02-21] MEDS: HYDROGEN PEROXIDE TOP ×3 (05:58→21:16)
[2019-02-21] MEDS: TPN 1,000 ML IV ×2 (06:22→22:40)
[2019-02-21] MEDS: METOPROLOL 25 MG TAB PO (08:58)
[2019-02-21 14:57] LABS: PLATELET COUNT 47 10^3/UL (140-415)
[2019-02-21 15:16] LABS: INR 1.56; PROTIME 18.8 Sec (11.9-14.9); PT RATIO 1.5
[2019-02-21 15:17] LABS: PARTIAL THROMBOPLASTIN TIME 40.5 Sec (23.0-35.0)
[2019-02-21 15:18] LABS: THROMBIN TIME 19.5 SEC (13.8-19.1)
[2019-02-21 15:49] LABS: D-DIMER > 10000.00 ng/ml (<460)
[2019-02-21] MEDS: PANTOPRAZOLE 40 MG INJ IV (17:49)
[2019-02-21] MEDS: HEPARIN 1000 UNITS/ML 10 ML INJ CATHETER (17:50)
[2019-02-21] MEDS: INSULIN GLARGINE [LANTus] (100 UNITS/ML) SYG SC (20:31)
[2019-02-21 23:00] LABS: ADD UMIC YES; UR ASCORBIC ACID NEGATIVE (NEGATIVE); UR BACTERIA FEW /HPF (NONE SEEN); UR BILIRUBIN (Dip) NEGATIVE (NEGATIVE); UR BLOOD (Dip) 3+ mg/dL (NEGATIVE); UR CLARITY CLOUDY (CLEAR); UR COLOR YELLOW (YELLOW); UR GLUCOSE (Dip) NEGATIVE (NEGATIVE); UR KETONES (Dip) NEGATIVE (NEGATIVE); UR LEUKOCYTE ESTERASE (Dip) NEGATIVE Leu/ul (NEGATIVE); UR NITRITE (Dip) NEGATIVE (NEGATIVE); UR RBC 94 /HPF (0-5); UR SPECIFIC GRAVITY (Dip) 1.014 (1.003-1.030); UR TOTAL PROTEIN (Dip) 2+ mg/dl (NEGATIVE); UR UROBILINOGEN (Dip) NEGATIVE (NEGATIVE); UR WBC 28 /HPF (0-5)
[2019-02-22] MEDS: INSULIN ASPART [NOVOLOG] 3 ML PEN SC ×6 (00:41→21:13)
[2019-02-22] MEDS: METOPROLOL 5 MG INJ IV ×6 (01:00→21:07)
[2019-02-22 05:27] LABS: ADD MAN DIFF? NO
[2019-02-22 05:34] LABS: ABNORMAL IP MESSAGE 1; BASOPHIL # 0.1 10^3/ul (0.0-0.1); BASOPHILS % 0.6 % (0.0-2.0); EOSINOPHILS # 0.1 10^3/ul (0.0-0.5); EOSINOPHILS % 0.4 % (0.0-7.0); HEMATOCRIT 29.2 % (42.0-52.0); HEMOGLOBIN 10.2 g/dl (14.0-18.0); LYMPHOCYTES # 1.8 10^3/ul (0.8-2.9); LYMPHOCYTES % 12.9 % (15.0-51.0); MEAN CORPUSCULAR HEMOGLOBIN 27.7 pg (29.0-33.0); MEAN CORPUSCULAR HGB CONC 34.9 g/dl (32.0-37.0); MEAN CORPUSCULAR VOLUME 79.3 fl (82.0-101.0); MONOCYTE # 2.3 10^3/ul (0.3-0.9); NEUTROPHIL # 9.2 10^3/ul (1.6-7.5); NUCLEATED RED BLOOD CELLS # 0.2 10^3/ul (0.0-0.0); NUCLEATED RED BLOOD CELLS% 1.2 /100WBC (0.0-0.0); PLATELET COUNT 49 10^3/UL (140-415); POSITIVE DIFF @See below; RED BLOOD COUNT 3.68 10^6/ul (4.70-6.10); RED CELL DISTRIBUTION WIDTH 15.6 % (11.5-14.5)
[2019-02-22 05:34] LABS: WHITE BLOOD COUNT 13.6 10^3/ul (4.8-10.8)
[2019-02-22] MEDS: CLINDAMYCIN 600 MG/D5W (PMX) 50 ML IVPB (05:35)
[2019-02-22] MEDS: PANTOPRAZOLE 40 MG INJ IV ×2 (05:35→19:14)
[2019-02-22] MEDS: HYDROGEN PEROXIDE TOP ×2 (05:36→14:51)
[2019-02-22] MEDS: WATER TOP ×2 (05:36→14:51)
[2019-02-22 05:40] LABS: PLATELET COUNT 47 10^3/UL (140-415)
[2019-02-22 05:54] LABS: INR 4.18; PROTIME 40.3 Sec (11.9-14.9); PT RATIO 3.1
[2019-02-22 06:23] LABS: ALANINE AMINOTRANSFERASE 599 IU/L (13-69); ALBUMIN 3.4 g/dl (3.3-4.9); ALKALINE PHOSPHATASE 138 IU/L (42-121); ASPARTATE AMINO TRANSFERASE 185 IU/L (15-46); BILIRUBIN,INDIRECT 0.8 mg/dl (0-1.1); BILIRUBIN,TOTAL 3.5 mg/dl (0.2-1.3); TOTAL PROTEIN 6.8 g/dl (6.1-8.1)
[2019-02-22 06:26] LABS: CREATINE KINASE 172 IU/L (23-200)
[2019-02-22 06:27] LABS: CK INDEX 0.5; CK-MB 0.86 ng/ml (0.0-2.4); TROPONIN-I 0.051 ng/ml (0.000-0.120)
[2019-02-22 06:54] LABS: INR 1.53; PROTIME 18.5 Sec (11.9-14.9); PT RATIO 1.4
[2019-02-22 06:55] LABS: PARTIAL THROMBOPLASTIN TIME 38.9 Sec (23.0-35.0)
[2019-02-22 06:56] LABS: THROMBIN TIME 19.1 SEC (13.8-19.1)
[2019-02-22 06:57] LABS: ANION GAP 17 (5-13); BLOOD UREA NITROGEN 98 mg/dl (7-20); CARBON DIOXIDE 20 mmol/L (21-31); CHLORIDE 97 mmol/L (97-110); CREATININE 9.22 mg/dl (0.61-1.24); Estimated GFR 7 mL/min (>60); GLUCOSE 148 mg/dl (70-220); POTASSIUM 4.4 mmol/L (3.5-5.1); SODIUM 134 mmol/L (135-144)
[2019-02-22 07:24] LABS: D-DIMER > 10000.00 ng/ml (<460)
[2019-02-22] MEDS ORDERED: AMPICILLIN 1 GM/NS (PMX) 50 ML IVPB (10:00)
[2019-02-22] MEDS: AMPICILLIN 1 GM/NS (PMX) 50 ML IVPB ×2 (13:46→21:07)
[2019-02-22 14:18] LABS: AADO2 Arterial 54.9 mmHg (7.0-24.0); Allen Test ACCEPTAB; Arterial Base Excess -5.4 mmol/L (-3.0-3); Arterial Blood Gas Oxygen Sat 97.8 mmHG (95.0-98.0); Arterial COHb 0 % (0.0-3.0); Arterial Fraction of Oxyhgb 97.7 % (93.0-99.0); Arterial HCO3 19.3 mmol/L (22.0-26.0); Arterial MetHb 0.1 % (0.0-1.5); Arterial pCO2 34.6 mmhg (35-45); Blood Gas PS 10; MODE VENT - CPAP; Site Right Radial
[2019-02-22] MEDS: TPN 1,000 ML IV (16:21)
[2019-02-22] MEDS: PROPOFOL 100 ML IV (19:16)
[2019-02-22] MEDS: INSULIN GLARGINE [LANTus] (100 UNITS/ML) SYG SC (21:13)
[2019-02-23 00:14] LABS: TYPE AND SCREEN 1
[2019-02-23] MEDS: INSULIN ASPART [NOVOLOG] 3 ML PEN SC ×6 (00:23→20:39)
[2019-02-23] MEDS: METOPROLOL 5 MG INJ IV ×6 (00:31→20:40)
[2019-02-23 05:20] LABS: ABNORMAL IP MESSAGE 1; HEMATOCRIT 24.6 % (42.0-52.0); HEMOGLOBIN 8.8 g/dl (14.0-18.0); MEAN CORPUSCULAR HEMOGLOBIN 26.9 pg (29.0-33.0); MEAN CORPUSCULAR HGB CONC 35.8 g/dl (32.0-37.0); MEAN CORPUSCULAR VOLUME 75.2 fl (82.0-101.0); NUCLEATED RED BLOOD CELLS% 0.7 /100WBC (0.0-0.0); PLATELET COUNT 62 10^3/UL (140-415); POSITIVE DIFF @See below; RED BLOOD COUNT 3.27 10^6/ul (4.70-6.10); RED CELL DISTRIBUTION WIDTH 14.5 % (11.5-14.5)
[2019-02-23 05:20] LABS: WHITE BLOOD COUNT 20.7 10^3/ul (4.8-10.8)
[2019-02-23 05:23] LABS: ADD MAN DIFF? YES
[2019-02-23 05:39] LABS: INR 1.41; PROTIME 17.4 Sec (11.9-14.9); PT RATIO 1.4
[2019-02-23 05:41] LABS: ANION GAP 20 (5-13); CALCIUM 7.8 mg/dl (8.4-10.2); CARBON DIOXIDE 19 mmol/L (21-31); CHLORIDE 97 mmol/L (97-110); GLUCOSE 141 mg/dl (70-220); POTASSIUM 4.2 mmol/L (3.5-5.1); SODIUM 136 mmol/L (135-144)
[2019-02-23 05:44] LABS: ALANINE AMINOTRANSFERASE 434 IU/L (13-69); ALBUMIN 2.8 g/dl (3.3-4.9); ALKALINE PHOSPHATASE 126 IU/L (42-121); ASPARTATE AMINO TRANSFERASE 105 IU/L (15-46); BILIRUBIN,INDIRECT 0.7 mg/dl (0-1.1); BILIRUBIN,TOTAL 3.5 mg/dl (0.2-1.3); MAGNESIUM 2.2 mg/dl (1.7-2.5); TOTAL PROTEIN 5.6 g/dl (6.1-8.1)
[2019-02-23 05:54] LABS: Estimated GFR 6 mL/min (>60)
[2019-02-23] MEDS: HYDROGEN PEROXIDE TOP ×4 (06:00→21:14)
[2019-02-23] MEDS: WATER TOP ×4 (06:00→21:14)
[2019-02-23] MEDS: PANTOPRAZOLE 40 MG INJ IV ×2 (06:01→17:37)
[2019-02-23] MEDS: PROPOFOL 100 ML IV ×3 (06:01→19:54)
[2019-02-23 06:06] LABS: BLOOD UREA NITROGEN 130 mg/dl (7-20); CREATININE 10.21 mg/dl (0.61-1.24)
[2019-02-23 08:20] LABS: ANISOCYTOSIS 3+ (0-0); BAND NEUTROPHILS #M 3.5 10^3/ul (0.0-0.6); BAND NEUTROPHILS % (M) 17 % (0-4); BURR CELLS 3+ (0-0); EOSINOPHILS % (M) 1 % (0-7); LYMPHOCYTES % (M) 5 % (15-51); METAMYELOCYTES #M 0.2 10^3/ul (0.0-0.0); METAMYELOCYTES %M 1 % (0-0); MONOCYTE #M 3.1 10^3/ul (0.3-0.9); MONOCYTES % (M) 15 % (0-11); MYELOCYTES #M 0.2 10^3/ul (0.0-0.0); MYELOCYTES % (M) 1 % (0-0); OVALOCYTES 1+ (0-0); PLATELET ESTIMATE SIG DECREASED; POIKILOCYTOSIS 3+ (0-0); REACTIVE LYMPHOCYTES #M 0.2 10^3/ul (0.0-0.0); REACTIVE LYMPHOCYTES% (M) 1 % (0-0); SEG NEUT #M 12.9 10^3/ul (1.6-7.5); SEGMENTED NEUTROPHILS (M) % 59 % (39-77); SMUDGE%M 9 % (0-0); TARGET CELLS 1+ (0-0)
[2019-02-23] MEDS: TPN 1,000 ML IV (08:26)
[2019-02-23] MEDS: AMPICILLIN 1 GM/NS (PMX) 50 ML IVPB ×2 (08:52→20:40)
[2019-02-23 10:25] LABS: HEMATOCRIT 23.6 % (42.0-52.0); HEMOGLOBIN 8.6 g/dl (14.0-18.0)
[2019-02-23] MEDS: ALTEPLASE (CATHFLO) 2 MG INJ CATHETER (15:32)
[2019-02-23] MEDS ORDERED: MIDAZOLAM 1 MG/ML 2 ML INJ (16:01)
[2019-02-23] MEDS ORDERED: FENTAnyl 50 MCG/ML VIAL ×2 (16:02)
[2019-02-23] MEDS: METOCLOPRAMIDE 10 MG INJ IV ×2 (17:37→23:28)
[2019-02-23 18:17] LABS: HEMATOCRIT 21.8 % (42.0-52.0); HEMOGLOBIN 7.9 g/dl (14.0-18.0)
[2019-02-23] MEDS: INSULIN GLARGINE [LANTus] (100 UNITS/ML) SYG SC (20:39)
[2019-02-23 21:55] LABS: IMMEDIATE SPIN CROSSMATCH 1 2
[2019-02-23] MEDS: MANNITOL 25% 50 ML IV (23:16)
[2019-02-24 00:25] LABS: HEMATOCRIT 33.3 % (42.0-52.0); HEMOGLOBIN 11.9 g/dl (14.0-18.0)
[2019-02-24] MEDS: TPN 1,000 ML IV ×2 (00:28→17:21)
[2019-02-24] MEDS: METOPROLOL 5 MG INJ IV ×6 (00:40→21:00)
[2019-02-24] MEDS: INSULIN ASPART [NOVOLOG] 3 ML PEN SC ×6 (00:41→21:33)
[2019-02-24] MEDS: DILTIAZEM 25 MG INJ IV (01:48)
[2019-02-24] MEDS: SOD CHLORIDE 0.9% 500 ML IV ×2 (02:00→03:11)
[2019-02-24] MEDS: HEPARIN 1000 UNITS/ML 10 ML INJ CATHETER (02:10)
[2019-02-24] MEDS: PROPOFOL 100 ML IV ×3 (03:44→17:20)
[2019-02-24] MEDS: PANTOPRAZOLE 40 MG INJ IV ×2 (05:09→17:20)
[2019-02-24] MEDS: HYDROGEN PEROXIDE TOP ×3 (05:09→21:34)
[2019-02-24] MEDS: METOCLOPRAMIDE 10 MG INJ IV ×3 (05:09→17:20)
[2019-02-24] MEDS: WATER TOP ×3 (05:09→21:34)
[2019-02-24 05:13] LABS: ABNORMAL IP MESSAGE 1; MEAN CORPUSCULAR HEMOGLOBIN 27.6 pg (29.0-33.0); MEAN CORPUSCULAR HGB CONC 35.5 g/dl (32.0-37.0); MEAN CORPUSCULAR VOLUME 77.9 fl (82.0-101.0); NUCLEATED RED BLOOD CELLS% 0.3 /100WBC (0.0-0.0); PLATELET COUNT 51 10^3/UL (140-415); POSITIVE DIFF @See below; RED BLOOD COUNT 3.98 10^6/ul (4.70-6.10)
[2019-02-24 05:14] LABS: PLATELET COUNT 56 10^3/UL (140-415)
[2019-02-24 05:36] LABS: ADD MAN DIFF? YES
[2019-02-24 06:00] LABS: INR 1.29; PROTIME 16.2 Sec (11.9-14.9); PT RATIO 1.3
[2019-02-24 06:01] LABS: PARTIAL THROMBOPLASTIN TIME 37.9 Sec (23.0-35.0)
[2019-02-24 06:02] LABS: THROMBIN TIME 20.3 SEC (13.8-19.1)
[2019-02-24 06:39] LABS: ALANINE AMINOTRANSFERASE 347 IU/L (13-69); ALBUMIN 2.9 g/dl (3.3-4.9); ALKALINE PHOSPHATASE 158 IU/L (42-121); ASPARTATE AMINO TRANSFERASE 92 IU/L (15-46); BILIRUBIN,INDIRECT 0.7 mg/dl (0-1.1)
[2019-02-24 07:02] LABS: D-DIMER > 10000.00 ng/ml (<460)
[2019-02-24 07:49] LABS: ANION GAP 14 (5-13); BLOOD UREA NITROGEN 91 mg/dl (7-20); CALCIUM 8.2 mg/dl (8.4-10.2); CARBON DIOXIDE 21 mmol/L (21-31); CHLORIDE 101 mmol/L (97-110); CREATININE 8.05 mg/dl (0.61-1.24); Estimated GFR 8 mL/min (>60); GLUCOSE 180 mg/dl (70-220); POTASSIUM 4.1 mmol/L (3.5-5.1); SODIUM 136 mmol/L (135-144)
[2019-02-24] MEDS: AMPICILLIN 1 GM/NS (PMX) 50 ML IVPB ×2 (09:43→21:30)
[2019-02-24 10:38] LABS: ANISOCYTOSIS 2+ (0-0); BAND NEUTROPHILS #M 1.8 10^3/ul (0.0-0.6); BAND NEUTROPHILS % (M) 10 % (0-4); BURR CELLS 2+ (0-0); EOSINOPHILS % (M) 1 % (0-7); LYMPHOCYTES #M 1.8 10^3/ul (0.8-2.9); LYMPHOCYTES % (M) 10 % (15-51); MONOCYTE #M 1.9 10^3/ul (0.3-0.9); MONOCYTES % (M) 11 % (0-11); PLATELET ESTIMATE SIG DECREASED; POIKILOCYTOSIS 3+ (0-0); REACTIVE LYMPHOCYTES #M 0.1 10^3/ul (0.0-0.0); REACTIVE LYMPHOCYTES% (M) 1 % (0-0); SEG NEUT #M 12.4 10^3/ul (1.6-7.5); SEGMENTED NEUTROPHILS (M) % 67 % (39-77); SMUDGE%M 2 % (0-0)
[2019-02-24 12:23] LABS: HEMATOCRIT 27.7 % (42.0-52.0); HEMOGLOBIN 10.1 g/dl (14.0-18.0)
[2019-02-24 19:04] LABS: HEMATOCRIT 31.5 % (42.0-52.0); HEMOGLOBIN 11.3 g/dl (14.0-18.0)
[2019-02-24] MEDS: INSULIN GLARGINE [LANTus] (100 UNITS/ML) SYG SC (20:26)
[2019-02-25] MEDS: METOPROLOL 5 MG INJ IV ×6 (00:09→21:08)
[2019-02-25] MEDS: METOCLOPRAMIDE 10 MG INJ IV ×5 (00:09→23:19)
[2019-02-25] MEDS: INSULIN ASPART [NOVOLOG] 3 ML PEN SC ×6 (00:18→21:12)
[2019-02-25 00:40] LABS: HEMATOCRIT 25.8 % (42.0-52.0); HEMOGLOBIN 9.2 g/dl (14.0-18.0)
[2019-02-25] MEDS: PROPOFOL 100 ML IV ×4 (01:46→23:18)
[2019-02-25] MEDS: PANTOPRAZOLE 40 MG INJ IV ×2 (05:20→17:27)
[2019-02-25 05:32] LABS: WHITE BLOOD COUNT 16.7 10^3/ul (4.8-10.8)
[2019-02-25 05:32] LABS: ABNORMAL IP MESSAGE 1; HEMATOCRIT 31.3 % (42.0-52.0); HEMOGLOBIN 11.4 g/dl (14.0-18.0); MEAN CORPUSCULAR HEMOGLOBIN 27.9 pg (29.0-33.0); MEAN CORPUSCULAR HGB CONC 36.4 g/dl (32.0-37.0); MEAN CORPUSCULAR VOLUME 76.5 fl (82.0-101.0); NUCLEATED RED BLOOD CELLS% 0.2 /100WBC (0.0-0.0); PLATELET COUNT 94 10^3/UL (140-415); POSITIVE DIFF @See below; RED BLOOD COUNT 4.09 10^6/ul (4.70-6.10); RED CELL DISTRIBUTION WIDTH 16.8 % (11.5-14.5)
[2019-02-25 05:35] LABS: ADD MAN DIFF? YES
[2019-02-25 05:41] LABS: ANION GAP 17 (5-13); BLOOD UREA NITROGEN 112 mg/dl (7-20); CALCIUM 8.4 mg/dl (8.4-10.2); CARBON DIOXIDE 18 mmol/L (21-31); CHLORIDE 101 mmol/L (97-110); CREATININE 9.79 mg/dl (0.61-1.24); Estimated GFR 6 mL/min (>60); GLUCOSE 151 mg/dl (70-220); SODIUM 136 mmol/L (135-144)
[2019-02-25 05:42] LABS: PHOSPHORUS 7.8 mg/dl (2.5-4.9)
[2019-02-25 05:42] LABS: MAGNESIUM 2.2 mg/dl (1.7-2.5)
[2019-02-25 05:53] LABS: ALANINE AMINOTRANSFERASE 255 IU/L (13-69); ALBUMIN 2.8 g/dl (3.3-4.9); ALKALINE PHOSPHATASE 162 IU/L (42-121); ASPARTATE AMINO TRANSFERASE 65 IU/L (15-46); BILIRUBIN,INDIRECT 0.7 mg/dl (0-1.1); BILIRUBIN,TOTAL 4.1 mg/dl (0.2-1.3)
[2019-02-25] MEDS: WATER TOP ×3 (05:54→21:16)
[2019-02-25] MEDS: HYDROGEN PEROXIDE TOP ×3 (05:54→21:16)
[2019-02-25 07:11] LABS: ANISOCYTOSIS 3+ (0-0); BAND NEUTROPHILS #M 0.3 10^3/ul (0.0-0.6); BAND NEUTROPHILS % (M) 2 % (0-4); BASOPHIL #M 0.1 10^3/ul (0.0-0.0); BASOPHILS % (M) 1 % (0-2); BURR CELLS 2+ (0-0); LYMPHOCYTES #M 1.3 10^3/ul (0.8-2.9); LYMPHOCYTES % (M) 8 % (15-51); MONOCYTE #M 2.1 10^3/ul (0.3-0.9); MONOCYTES % (M) 13 % (0-11); PLATELET ESTIMATE DECREASED; POIKILOCYTOSIS 3+ (0-0); POLYCHROMASIA 1+ (0-0); REACTIVE LYMPHOCYTES #M 0.6 10^3/ul (0.0-0.0); REACTIVE LYMPHOCYTES% (M) 4 % (0-0); SEG NEUT #M 12.1 10^3/ul (1.6-7.5); SEGMENTED NEUTROPHILS (M) % 72 % (39-77); SMUDGE%M 6 % (0-0); TARGET CELLS 1+ (0-0)
[2019-02-25] MEDS: AMPICILLIN 1 GM/NS (PMX) 50 ML IVPB ×2 (08:11→21:08)
[2019-02-25] MEDS: TPN 1,000 ML IV (09:28)
[2019-02-25 10:39] LABS: PREALBUMIN 9.2 mg/dl (17.6-36.0)
[2019-02-25 11:34] LABS: HEMATOCRIT 29.9 % (42.0-52.0)
[2019-02-25 19:19] LABS: HEMATOCRIT 29.9 % (42.0-52.0); HEMOGLOBIN 10.9 g/dl (14.0-18.0)
[2019-02-25] MEDS: INSULIN GLARGINE [LANTus] (100 UNITS/ML) SYG SC (21:10)
[2019-02-26] MEDS: INSULIN ASPART [NOVOLOG] 3 ML PEN SC ×6 (01:00→20:43)
[2019-02-26] MEDS: METOPROLOL 5 MG INJ IV ×6 (01:00→20:45)
[2019-02-26 01:14] LABS: HEMATOCRIT 28.1 % (42.0-52.0); HEMOGLOBIN 10.2 g/dl (14.0-18.0)
[2019-02-26] MEDS: TPN 1,000 ML IV ×2 (03:06→20:40)
[2019-02-26 04:46] LABS: ADD MAN DIFF? NO
[2019-02-26 04:58] LABS: WHITE BLOOD COUNT 14.7 10^3/ul (4.8-10.8)
[2019-02-26 04:59] LABS: ABNORMAL IP MESSAGE 1; BASOPHILS % 0.2 % (0.0-2.0); EOSINOPHILS # 0.3 10^3/ul (0.0-0.5); EOSINOPHILS % 1.9 % (0.0-7.0); HEMATOCRIT 28.7 % (42.0-52.0); HEMOGLOBIN 10.4 g/dl (14.0-18.0); LYMPHOCYTES % 13.6 % (15.0-51.0); MEAN CORPUSCULAR HEMOGLOBIN 27.7 pg (29.0-33.0); MEAN CORPUSCULAR HGB CONC 36.2 g/dl (32.0-37.0); MEAN CORPUSCULAR VOLUME 76.3 fl (82.0-101.0); MONOCYTE # 2.2 10^3/ul (0.3-0.9); MONOCYTES % 15.2 % (0.0-11.0); NEUTROPHIL # 9.9 10^3/ul (1.6-7.5); NEUTROPHILS % 67.2 % (39.0-77.0); NUCLEATED RED BLOOD CELLS% 0.1 /100WBC (0.0-0.0); PLATELET COUNT 111 10^3/UL (140-415); POSITIVE DIFF @See below; RED BLOOD COUNT 3.76 10^6/ul (4.70-6.10); RED CELL DISTRIBUTION WIDTH 16.8 % (11.5-14.5)
[2019-02-26] MEDS: PROPOFOL 100 ML IV ×3 (05:07→20:40)
[2019-02-26] MEDS: METOCLOPRAMIDE 10 MG INJ IV ×3 (05:07→16:58)
[2019-02-26] MEDS: PANTOPRAZOLE 40 MG INJ IV ×2 (05:07→15:08)
[2019-02-26 05:12] LABS: ANION GAP 16 (5-13); CALCIUM 8.5 mg/dl (8.4-10.2); CARBON DIOXIDE 17 mmol/L (21-31); CHLORIDE 102 mmol/L (97-110); GLUCOSE 141 mg/dl (70-220); MAGNESIUM 2.3 mg/dl (1.7-2.5); PHOSPHORUS 9.4 mg/dl (2.5-4.9); POTASSIUM 4.4 mmol/L (3.5-5.1); SODIUM 135 mmol/L (135-144)
[2019-02-26 05:21] LABS: Estimated GFR 6 mL/min (>60)
[2019-02-26 05:22] LABS: ALANINE AMINOTRANSFERASE 187 IU/L (13-69); ALBUMIN 2.5 g/dl (3.3-4.9); ALKALINE PHOSPHATASE 132 IU/L (42-121); ASPARTATE AMINO TRANSFERASE 53 IU/L (15-46); BILIRUBIN,INDIRECT 0.6 mg/dl (0-1.1); BILIRUBIN,TOTAL 3.3 mg/dl (0.2-1.3); TOTAL PROTEIN 5.7 g/dl (6.1-8.1)
[2019-02-26 05:28] LABS: INR 1.33; PROTIME 16.6 Sec (11.9-14.9); PT RATIO 1.3
[2019-02-26] MEDS: HYDROGEN PEROXIDE TOP ×3 (05:46→21:32)
[2019-02-26] MEDS: WATER TOP ×3 (05:46→21:32)
[2019-02-26 05:55] LABS: BLOOD UREA NITROGEN 134 mg/dl (7-20); CREATININE 10.25 mg/dl (0.61-1.24)
[2019-02-26] MEDS: MANNITOL 25% 50 ML IV (10:45)
[2019-02-26] MEDS: HEPARIN 1000 UNITS/ML 10 ML INJ CATHETER (13:54)
[2019-02-26] MEDS: AMPICILLIN 1 GM/NS (PMX) 50 ML IVPB ×2 (15:07→20:49)
[2019-02-26 16:20] LABS: HEMATOCRIT 29.9 % (42.0-52.0); HEMOGLOBIN 10.7 g/dl (14.0-18.0)
[2019-02-26] MEDS: INSULIN GLARGINE [LANTus] (100 UNITS/ML) SYG SC (20:47)
[2019-02-27] MEDS: METOPROLOL 5 MG INJ IV ×6 (00:37→20:55)
[2019-02-27] MEDS: METOCLOPRAMIDE 10 MG INJ IV ×5 (00:37→20:54)
[2019-02-27] MEDS: INSULIN ASPART [NOVOLOG] 3 ML PEN SC ×6 (00:46→20:58)
[2019-02-27] MEDS: PROPOFOL 100 ML IV ×3 (02:24→21:06)
[2019-02-27 05:28] LABS: ABNORMAL IP MESSAGE 1; HEMATOCRIT 26.6 % (42.0-52.0); HEMOGLOBIN 9.9 g/dl (14.0-18.0); MEAN CORPUSCULAR HEMOGLOBIN 28.2 pg (29.0-33.0); MEAN CORPUSCULAR HGB CONC 37.2 g/dl (32.0-37.0); MEAN CORPUSCULAR VOLUME 75.8 fl (82.0-101.0); NUCLEATED RED BLOOD CELLS% 0.1 /100WBC (0.0-0.0); PLATELET COUNT 142 10^3/UL (140-415); POSITIVE DIFF @See below; RED BLOOD COUNT 3.51 10^6/ul (4.70-6.10)
[2019-02-27 05:28] LABS: WHITE BLOOD COUNT 14.9 10^3/ul (4.8-10.8)
[2019-02-27 05:29] LABS: ADD MAN DIFF? YES
[2019-02-27 05:35] LABS: ANION GAP 18 (5-13); BLOOD UREA NITROGEN 100 mg/dl (7-20); CALCIUM 8.1 mg/dl (8.4-10.2); CARBON DIOXIDE 19 mmol/L (21-31); CHLORIDE 102 mmol/L (97-110); CREATININE 7.25 mg/dl (0.61-1.24); Estimated GFR 9 mL/min (>60); GLUCOSE 131 mg/dl (70-220); PHOSPHORUS 7.3 mg/dl (2.5-4.9); POTASSIUM 4.4 mmol/L (3.5-5.1); SODIUM 139 mmol/L (135-144)
[2019-02-27] MEDS: PANTOPRAZOLE 40 MG INJ IV ×2 (05:50→17:11)
[2019-02-27] MEDS: HYDROGEN PEROXIDE TOP ×3 (05:53→21:01)
[2019-02-27] MEDS: WATER TOP ×3 (05:53→21:01)
[2019-02-27 07:48] LABS: ANISOCYTOSIS 3+ (0-0); BAND NEUTROPHILS #M 0.5 10^3/ul (0.0-0.6); BAND NEUTROPHILS % (M) 4 % (0-4); BASOPHIL #M 0.1 10^3/ul (0.0-0.0); BASOPHILS % (M) 1 % (0-2); BURR CELLS 3+ (0-0); EOSINOPHILS % (M) 3 % (0-7); ERYTHROBLAST% (NRBC) (M) 2 % (0-0); GIANT THROMBO% (M) 3 % (0-0); LYMPHOCYTES #M 0.8 10^3/ul (0.8-2.9); LYMPHOCYTES % (M) 6 % (15-51); MONOCYTES % (M) 7 % (0-11); PLATELET ESTIMATE NORMAL; POIKILOCYTOSIS 3+ (0-0); POLYCHROMASIA 1+ (0-0); REACTIVE LYMPHOCYTES #M 1.7 10^3/ul (0.0-0.0); REACTIVE LYMPHOCYTES% (M) 12 % (0-0); SEG NEUT #M 10.1 10^3/ul (1.6-7.5); SEGMENTED NEUTROPHILS (M) % 67 % (39-77); SMUDGE%M 60 % (0-0); TARGET CELLS 1+ (0-0)
[2019-02-27] MEDS: SCOPOLAMINE 1.5 MG PATCH TRANSDERM (11:31)
[2019-02-27] MEDS: TPN 1,000 ML IV ×2 (12:00→16:12)
[2019-02-27] MEDS: INSULIN GLARGINE [LANTus] (100 UNITS/ML) SYG SC (20:58)
[2019-02-28] MEDS: METOPROLOL 5 MG INJ IV ×7 (00:50→20:23)
[2019-02-28] MEDS: INSULIN ASPART [NOVOLOG] 3 ML PEN SC ×6 (00:55→20:27)
[2019-02-28] MEDS: PROPOFOL 100 ML IV (02:55)
[2019-02-28] MEDS: PANTOPRAZOLE 40 MG INJ IV ×2 (05:22→17:02)
[2019-02-28] MEDS: HYDROGEN PEROXIDE TOP ×3 (05:22→21:12)
[2019-02-28] MEDS: METOCLOPRAMIDE 10 MG INJ IV ×4 (05:22→23:53)
[2019-02-28] MEDS: WATER TOP ×3 (05:22→21:12)
[2019-02-28 05:45] LABS: ABNORMAL IP MESSAGE 1; HEMATOCRIT 27.3 % (42.0-52.0); MEAN CORPUSCULAR HEMOGLOBIN 27.9 pg (29.0-33.0); MEAN CORPUSCULAR HGB CONC 36.6 g/dl (32.0-37.0); NUCLEATED RED BLOOD CELLS% 0.1 /100WBC (0.0-0.0); PLATELET COUNT 176 10^3/UL (140-415); POSITIVE DIFF @See below; RED BLOOD COUNT 3.59 10^6/ul (4.70-6.10); RED CELL DISTRIBUTION WIDTH 17.2 % (11.5-14.5)
[2019-02-28 05:45] LABS: WHITE BLOOD COUNT 13.7 10^3/ul (4.8-10.8)
[2019-02-28 05:47] LABS: ADD MAN DIFF? YES
[2019-02-28 07:38] LABS: ANISOCYTOSIS 3+ (0-0); BURR CELLS 3+ (0-0); EOSINOPHILS % (M) 4 % (0-7); ERYTHROBLAST% (NRBC) (M) 1 % (0-0); GIANT THROMBO% (M) 1 % (0-0); LYMPHOCYTES #M 1.5 10^3/ul (0.8-2.9); LYMPHOCYTES % (M) 11 % (15-51); MONOCYTE #M 1.7 10^3/ul (0.3-0.9); MONOCYTES % (M) 13 % (0-11); PLATELET ESTIMATE NORMAL; POIKILOCYTOSIS 3+ (0-0); POLYCHROMASIA 2+ (0-0); REACTIVE LYMPHOCYTES #M 0.1 10^3/ul (0.0-0.0); REACTIVE LYMPHOCYTES% (M) 1 % (0-0); SEGMENTED NEUTROPHILS (M) % 71 % (39-77); SMUDGE%M 85 % (0-0); TARGET CELLS 3+ (0-0)
[2019-02-28 07:56] LABS: ANION GAP 15 (5-13); CALCIUM 8.7 mg/dl (8.4-10.2); CARBON DIOXIDE 21 mmol/L (21-31); CHLORIDE 102 mmol/L (97-110); CREATININE 8.93 mg/dl (0.61-1.24); Estimated GFR 7 mL/min (>60); GLUCOSE 112 mg/dl (70-220); MAGNESIUM 2.2 mg/dl (1.7-2.5); POTASSIUM 4.2 mmol/L (3.5-5.1); SODIUM 138 mmol/L (135-144)
[2019-02-28 08:07] LABS: BLOOD UREA NITROGEN 119 mg/dl (7-20)
[2019-02-28 11:32] LABS: AADO2 Arterial 60.1 mmHg (7.0-24.0); Allen Test ACCEPTAB; Arterial Base Excess -5.6 mmol/L (-3.0-3); Arterial COHb 0.2 % (0.0-3.0); Arterial Fraction of Oxyhgb 97.3 % (93.0-99.0); Arterial HCO3 18.7 mmol/L (22.0-26.0); Arterial MetHb 0.5 % (0.0-1.5); Arterial pCO2 32.2 mmhg (35-45); Blood Gas PS 10; MODE VENT - CPAP; Site Right Radial
[2019-02-28] MEDS: ALBUMIN HUMAN 25% 100 ML IV (12:45)
[2019-02-28] MEDS: HEPARIN 1000 UNITS/ML 10 ML INJ CATHETER (14:42)
[2019-02-28] MEDS: INSULIN GLARGINE [LANTus] (100 UNITS/ML) SYG SC (20:32)
[2019-02-28] MEDS: LORAZEPAM 2 MG INJ IV (21:12)
[2019-02-28] MEDS: TPN 1,000 ML IV (21:12)
[2019-03-01] MEDS: METOPROLOL 5 MG INJ IV ×6 (00:56→21:18)
[2019-03-01] MEDS: INSULIN ASPART [NOVOLOG] 3 ML PEN SC ×7 (01:01→21:07)
[2019-03-01] MEDS: PROPOFOL 100 ML IV ×2 (04:00→13:50)
[2019-03-01 05:14] LABS: ADD MAN DIFF? NO
[2019-03-01 05:16] LABS: ABNORMAL IP MESSAGE 1; BASOPHIL # 0.1 10^3/ul (0.0-0.1); BASOPHILS % 0.5 % (0.0-2.0); EOSINOPHILS # 0.2 10^3/ul (0.0-0.5); EOSINOPHILS % 1.2 % (0.0-7.0); HEMATOCRIT 26.3 % (42.0-52.0); HEMOGLOBIN 9.4 g/dl (14.0-18.0); LYMPHOCYTES # 1.6 10^3/ul (0.8-2.9); LYMPHOCYTES % 12.5 % (15.0-51.0); MEAN CORPUSCULAR HEMOGLOBIN 27.7 pg (29.0-33.0); MEAN CORPUSCULAR HGB CONC 35.7 g/dl (32.0-37.0); MEAN CORPUSCULAR VOLUME 77.6 fl (82.0-101.0); MEAN PLATELET VOLUME 12.7 fl (7.4-10.4); MONOCYTES % 15.6 % (0.0-11.0); NEUTROPHILS % 69.4 % (39.0-77.0); PLATELET COUNT 202 10^3/UL (140-415); POSITIVE DIFF @See below; RED BLOOD COUNT 3.39 10^6/ul (4.70-6.10); RED CELL DISTRIBUTION WIDTH 17.3 % (11.5-14.5)
[2019-03-01] MEDS: METOCLOPRAMIDE 10 MG INJ IV ×3 (05:35→17:03)
[2019-03-01] MEDS: HYDROGEN PEROXIDE TOP ×3 (05:36→22:55)
[2019-03-01] MEDS: PANTOPRAZOLE 40 MG INJ IV ×2 (05:36→17:01)
[2019-03-01] MEDS: WATER TOP ×3 (05:36→22:55)
[2019-03-01 05:43] LABS: ANION GAP 10 (5-13); BLOOD UREA NITROGEN 85 mg/dl (7-20); CALCIUM 8.6 mg/dl (8.4-10.2); CARBON DIOXIDE 26 mmol/L (21-31); CHLORIDE 104 mmol/L (97-110); CREATININE 6.03 mg/dl (0.61-1.24); Estimated GFR 11 mL/min (>60); GLUCOSE 129 mg/dl (70-220); POTASSIUM 3.9 mmol/L (3.5-5.1); SODIUM 140 mmol/L (135-144)
[2019-03-01 08:44] LABS: AADO2 Arterial 61.3 mmHg (7.0-24.0); Allen Test ACCEPTAB; Arterial Base Excess -1.6 mmol/L (-3.0-3); Arterial Blood Gas Oxygen Sat 97.7 mmHG (95.0-98.0); Arterial COHb 0 % (0.0-3.0); Arterial Fraction of Oxyhgb 97.3 % (93.0-99.0); Arterial HCO3 22.5 mmol/L (22.0-26.0); Arterial MetHb 0.4 % (0.0-1.5); Arterial pCO2 35.5 mmhg (35-45); Blood Gas PS 10; MODE VENT - CPAP; Site Right Radial
[2019-03-01] MEDS: DIGOXIN 500 MCG INJ IV (10:33)
[2019-03-01] MEDS: TPN 1,000 ML IV (13:11)
[2019-03-01] MEDS: INSULIN GLARGINE [LANTus] (100 UNITS/ML) SYG SC (20:54)
[2019-03-01] MEDS: HEPARIN 5,000 UNIT/1 ML VIAL SC (20:54)
[2019-03-02] MEDS: METOCLOPRAMIDE 10 MG INJ IV ×2 (00:54→05:32)
[2019-03-02] MEDS: METOPROLOL 5 MG INJ IV ×7 (01:12→21:36)
[2019-03-02] MEDS: INSULIN ASPART [NOVOLOG] 3 ML PEN SC ×6 (01:25→20:25)
[2019-03-02 04:59] LABS: ADD MAN DIFF? NO
[2019-03-02 05:05] LABS: WHITE BLOOD COUNT 13.6 10^3/ul (4.8-10.8)
[2019-03-02 05:05] LABS: ABNORMAL IP MESSAGE 1; BASOPHIL # 0.1 10^3/ul (0.0-0.1); BASOPHILS % 0.4 % (0.0-2.0); EOSINOPHILS # 0.2 10^3/ul (0.0-0.5); EOSINOPHILS % 1.2 % (0.0-7.0); HEMATOCRIT 27.9 % (42.0-52.0); HEMOGLOBIN 9.9 g/dl (14.0-18.0); LYMPHOCYTES # 1.9 10^3/ul (0.8-2.9); LYMPHOCYTES % 13.6 % (15.0-51.0); MEAN CORPUSCULAR HEMOGLOBIN 27.6 pg (29.0-33.0); MEAN CORPUSCULAR HGB CONC 35.5 g/dl (32.0-37.0); MEAN CORPUSCULAR VOLUME 77.7 fl (82.0-101.0); MONOCYTE # 1.9 10^3/ul (0.3-0.9); MONOCYTES % 13.6 % (0.0-11.0); NEUTROPHIL # 9.6 10^3/ul (1.6-7.5); NEUTROPHILS % 70.6 % (39.0-77.0); NUCLEATED RED BLOOD CELLS% 0.1 /100WBC (0.0-0.0); PLATELET COUNT 271 10^3/UL (140-415); POSITIVE DIFF @See below; RED BLOOD COUNT 3.59 10^6/ul (4.70-6.10); RED CELL DISTRIBUTION WIDTH 17.8 % (11.5-14.5)
[2019-03-02] MEDS: PROPOFOL 100 ML IV (05:23)
[2019-03-02] MEDS: PANTOPRAZOLE 40 MG INJ IV ×2 (05:32→17:45)
[2019-03-02] MEDS: HYDROGEN PEROXIDE TOP ×3 (05:33→20:28)
[2019-03-02] MEDS: WATER TOP ×3 (05:33→20:28)
[2019-03-02 05:36] LABS: ANION GAP 9 (5-13); BLOOD UREA NITROGEN 103 mg/dl (7-20); CALCIUM 8.6 mg/dl (8.4-10.2); CARBON DIOXIDE 26 mmol/L (21-31); CHLORIDE 108 mmol/L (97-110); CREATININE 6.44 mg/dl (0.61-1.24); Estimated GFR 11 mL/min (>60); GLUCOSE 150 mg/dl (70-220); PHOSPHORUS 5.1 mg/dl (2.5-4.9); POTASSIUM 3.5 mmol/L (3.5-5.1); SODIUM 143 mmol/L (135-144)
[2019-03-02] MEDS: TPN 1,000 ML IV ×2 (05:45→22:15)
[2019-03-02] MEDS: HEPARIN 5,000 UNIT/1 ML VIAL SC ×2 (09:21→20:26)
[2019-03-02] MEDS: DILTIAZEM 25 MG INJ IV ×2 (10:41→11:41)
[2019-03-02] MEDS: HEPARIN 1000 UNITS/ML 10 ML INJ CATHETER (11:49)
[2019-03-02] MEDS: AMIODARONE 150MG/D5W BOLUS 100 ML IV (13:02)
[2019-03-02] MEDS: AMIODARONE 900 MG in DEXTROSE 5% 482 ML IV (13:29)
[2019-03-02] MEDS: INSULIN GLARGINE [LANTus] (100 UNITS/ML) SYG SC (20:26)
[2019-03-03] MEDS: LORAZEPAM 2 MG INJ IV (00:20)
[2019-03-03] MEDS: INSULIN ASPART [NOVOLOG] 3 ML PEN SC ×6 (00:23→21:18)
[2019-03-03] MEDS: METOPROLOL 5 MG INJ IV ×6 (00:39→21:17)
[2019-03-03] MEDS: PANTOPRAZOLE 40 MG INJ IV ×2 (05:03→17:49)
[2019-03-03] MEDS: WATER TOP ×3 (06:00→21:24)
[2019-03-03] MEDS: HYDROGEN PEROXIDE TOP ×3 (06:00→21:24)
[2019-03-03 06:21] LABS: ADD MAN DIFF? NO
[2019-03-03 06:27] LABS: WHITE BLOOD COUNT 13.8 10^3/ul (4.8-10.8)
[2019-03-03 06:27] LABS: ABNORMAL IP MESSAGE 1; BASOPHIL # 0.1 10^3/ul (0.0-0.1); BASOPHILS % 0.6 % (0.0-2.0); EOSINOPHILS # 0.2 10^3/ul (0.0-0.5); EOSINOPHILS % 1.4 % (0.0-7.0); HEMATOCRIT 29.7 % (42.0-52.0); HEMOGLOBIN 10.1 g/dl (14.0-18.0); LYMPHOCYTES # 2.4 10^3/ul (0.8-2.9); LYMPHOCYTES % 17.7 % (15.0-51.0); MEAN CORPUSCULAR HEMOGLOBIN 28.1 pg (29.0-33.0); MEAN CORPUSCULAR VOLUME 82.7 fl (82.0-101.0); MEAN PLATELET VOLUME 13.5 fl (7.4-10.4); MONOCYTE # 1.6 10^3/ul (0.3-0.9); MONOCYTES % 11.5 % (0.0-11.0); NEUTROPHIL # 9.5 10^3/ul (1.6-7.5); NEUTROPHILS % 68.3 % (39.0-77.0); PLATELET COUNT 285 10^3/UL (140-415); POSITIVE DIFF @See below; RED BLOOD COUNT 3.59 10^6/ul (4.70-6.10); RED CELL DISTRIBUTION WIDTH 20.4 % (11.5-14.5)
[2019-03-03] MEDS: LABETALOL HCL 20MG INJ IV ×2 (06:43→19:05)
[2019-03-03 06:59] LABS: ANION GAP 6 (5-13); BLOOD UREA NITROGEN 109 mg/dl (7-20); CALCIUM 8.3 mg/dl (8.4-10.2); CARBON DIOXIDE 26 mmol/L (21-31); CHLORIDE 109 mmol/L (97-110); CREATININE 5.22 mg/dl (0.61-1.24); Estimated GFR 13 mL/min (>60); GLUCOSE 135 mg/dl (70-220); MAGNESIUM 1.8 mg/dl (1.7-2.5); PHOSPHORUS 4.8 mg/dl (2.5-4.9); SODIUM 141 mmol/L (135-144)
[2019-03-03 07:03] LABS: POTASSIUM 8.5 mmol/L (3.5-5.1)
[2019-03-03] MEDS: HEPARIN 5,000 UNIT/1 ML VIAL SC ×2 (08:45→21:13)
[2019-03-03 09:08] LABS: POTASSIUM 3.2 mmol/L (3.5-5.1)
[2019-03-03] MEDS: ALBUMIN HUMAN 25% 100 ML IV ×2 (13:32→20:32)
[2019-03-03] MEDS: TPN 1,000 ML IV (15:16)
[2019-03-03] MEDS: INSULIN GLARGINE [LANTus] (100 UNITS/ML) SYG SC (21:18)
[2019-03-04] MEDS: LABETALOL HCL 20MG INJ IV ×2 (00:03→22:02)
[2019-03-04] MEDS: METOPROLOL 5 MG INJ IV ×8 (00:55→20:35)
[2019-03-04] MEDS: INSULIN ASPART [NOVOLOG] 3 ML PEN SC ×6 (01:00→20:52)
[2019-03-04] MEDS: LORAZEPAM 2 MG INJ IV ×2 (01:15→09:19)
[2019-03-04] MEDS: LEVALBUTEROL (NEB) 1.25 MG/0.5 ML AMP HHN (01:22)
[2019-03-04] MEDS ORDERED: FUROSEMIDE 40 MG INJ (01:40)
[2019-03-04] MEDS: DILTIAZEM 25 MG INJ IV ×3 (01:43→16:54)
[2019-03-04 01:51] LABS: AADO2 Arterial 86.4 mmHg (7.0-24.0); Allen Test ACCEPTAB; Arterial Base Excess -3.5 mmol/L (-3.0-3); Arterial Blood Gas Oxygen Sat 93.4 mmHG (95.0-98.0); Arterial COHb 0.3 % (0.0-3.0); Arterial Fraction of Oxyhgb 92.9 % (93.0-99.0); Arterial HCO3 20.9 mmol/L (22.0-26.0); Arterial MetHb 0.2 % (0.0-1.5); Arterial pCO2 35.3 mmhg (35-45); MODE NASAL CANNULA; Site Right Radial
[2019-03-04] MEDS: FUROSEMIDE 40 MG INJ IV (01:58)
[2019-03-04 03:14] LABS: ADD MAN DIFF? NO
[2019-03-04 03:18] LABS: WHITE BLOOD COUNT 17.5 10^3/ul (4.8-10.8)
[2019-03-04 03:18] LABS: ABNORMAL IP MESSAGE 1; BASOPHIL # 0.1 10^3/ul (0.0-0.1); BASOPHILS % 0.4 % (0.0-2.0); EOSINOPHILS # 0.1 10^3/ul (0.0-0.5); EOSINOPHILS % 0.4 % (0.0-7.0); HEMOGLOBIN 8.6 g/dl (14.0-18.0); LYMPHOCYTES # 1.4 10^3/ul (0.8-2.9); LYMPHOCYTES % 7.8 % (15.0-51.0); MEAN CORPUSCULAR HEMOGLOBIN 28.6 pg (29.0-33.0); MEAN CORPUSCULAR HGB CONC 34.4 g/dl (32.0-37.0); MEAN CORPUSCULAR VOLUME 83.1 fl (82.0-101.0); MEAN PLATELET VOLUME 13.1 fl (7.4-10.4); MONOCYTES % 5.9 % (0.0-11.0); NEUTROPHIL # 14.9 10^3/ul (1.6-7.5); PLATELET COUNT 297 10^3/UL (140-415); POSITIVE DIFF @See below; RED BLOOD COUNT 3.01 10^6/ul (4.70-6.10); RED CELL DISTRIBUTION WIDTH 18.6 % (11.5-14.5)
[2019-03-04 03:45] LABS: PREALBUMIN 15.5 mg/dl (17.6-36.0)
[2019-03-04] MEDS: ALBUMIN HUMAN 25% 100 ML IV (04:22)
[2019-03-04] MEDS: PANTOPRAZOLE 40 MG INJ IV ×2 (06:08→17:47)
[2019-03-04] MEDS: HYDROGEN PEROXIDE TOP ×3 (06:08→21:12)
[2019-03-04] MEDS: WATER TOP ×3 (06:08→21:12)
[2019-03-04 06:24] LABS: ANION GAP 15 (5-13); BLOOD UREA NITROGEN 110 mg/dl (7-20); CALCIUM 9.5 mg/dl (8.4-10.2); CARBON DIOXIDE 25 mmol/L (21-31); CHLORIDE 107 mmol/L (97-110); CREATININE 4.88 mg/dl (0.61-1.24); Estimated GFR 14 mL/min (>60); GLUCOSE 164 mg/dl (70-220); MAGNESIUM 1.6 mg/dl (1.7-2.5); SODIUM 147 mmol/L (135-144)
[2019-03-04] MEDS ORDERED: MAGNESIUM SULFATE 2 GM/50 ML 50 ML (06:57)
[2019-03-04] MEDS: MAGNESIUM SULFATE 2 GM/50 ML 50 ML IVPB (07:02)
[2019-03-04] MEDS: TPN 1,000 ML IV (08:31)
[2019-03-04] MEDS: HEPARIN 5,000 UNIT/1 ML VIAL SC ×2 (08:32→21:11)
[2019-03-04] MEDS ORDERED: DILTIAZEM-D5W 125MG/125ML DRIP 125 ML IV (10:00)
[2019-03-04] MEDS ORDERED: DILTIAZEM 25 MG INJ IV (10:00)
[2019-03-04 11:56] LABS: PROCALCITONIN 2.28 ng/mL (0.00-0.10)
[2019-03-04] MEDS ORDERED: PIPER-TAZO 3.375 GM IV (PMX) 100 ML IVPB (14:00)
[2019-03-04] MEDS: PIPER-TAZO 2.25 GM/NS 50 ML IVPB ×2 (14:44→21:12)
[2019-03-04] MEDS: DILTIAZEM-D5W 125MG/125ML DRIP 125 ML IV (16:57)
[2019-03-04] MEDS: ALPRAZOLAM 0.25 MG TAB PO (20:35)
[2019-03-04] MEDS: INSULIN GLARGINE [LANTus] (100 UNITS/ML) SYG SC (20:50)
[2019-03-05] MEDS: METOPROLOL 5 MG INJ IV ×5 (00:48→16:12)
[2019-03-05] MEDS: INSULIN ASPART [NOVOLOG] 3 ML PEN SC ×6 (00:55→20:55)
[2019-03-05] MEDS: DILTIAZEM 25 MG INJ IV ×3 (02:30→14:25)
[2019-03-05] MEDS: DILTIAZEM-D5W 125MG/125ML DRIP 125 ML IV ×5 (03:49→17:25)
[2019-03-05] MEDS: ALTEPLASE (CATHFLO) 2 MG INJ CATHETER ×2 (03:59→05:21)
[2019-03-05 04:52] LABS: ADD MAN DIFF? NO
[2019-03-05 04:56] LABS: WHITE BLOOD COUNT 17.6 10^3/ul (4.8-10.8)
[2019-03-05 04:56] LABS: ABNORMAL IP MESSAGE 1; BASOPHIL # 0.1 10^3/ul (0.0-0.1); BASOPHILS % 0.3 % (0.0-2.0); EOSINOPHILS # 0.1 10^3/ul (0.0-0.5); EOSINOPHILS % 0.5 % (0.0-7.0); HEMATOCRIT 25.1 % (42.0-52.0); HEMOGLOBIN 8.5 g/dl (14.0-18.0); LYMPHOCYTES # 1.8 10^3/ul (0.8-2.9); LYMPHOCYTES % 10.2 % (15.0-51.0); MEAN CORPUSCULAR HEMOGLOBIN 27.9 pg (29.0-33.0); MEAN CORPUSCULAR HGB CONC 33.9 g/dl (32.0-37.0); MEAN CORPUSCULAR VOLUME 82.3 fl (82.0-101.0); MEAN PLATELET VOLUME 13.1 fl (7.4-10.4); MONOCYTE # 1.1 10^3/ul (0.3-0.9); MONOCYTES % 6.2 % (0.0-11.0); NEUTROPHIL # 14.4 10^3/ul (1.6-7.5); NEUTROPHILS % 82.1 % (39.0-77.0); PLATELET COUNT 334 10^3/UL (140-415); POSITIVE DIFF @See below; RED BLOOD COUNT 3.05 10^6/ul (4.70-6.10); RED CELL DISTRIBUTION WIDTH 18.5 % (11.5-14.5)
[2019-03-05] MEDS: WATER TOP ×3 (05:14→22:00)
[2019-03-05] MEDS: HYDROGEN PEROXIDE TOP ×3 (05:14→22:00)
[2019-03-05] MEDS: PIPER-TAZO 2.25 GM/NS 50 ML IVPB ×3 (05:14→23:17)
[2019-03-05] MEDS: PANTOPRAZOLE 40 MG INJ IV ×2 (05:14→17:25)
[2019-03-05 05:18] LABS: AMMONIA 19 umol/l (9-30)
[2019-03-05 05:19] LABS: ALANINE AMINOTRANSFERASE 126 IU/L (13-69); ALBUMIN 3.9 g/dl (3.3-4.9); ALBUMIN/GLOBULIN RATIO 0.97; ALKALINE PHOSPHATASE 154 IU/L (42-121); ANION GAP 13 (5-13); ASPARTATE AMINO TRANSFERASE 97 IU/L (15-46); BILIRUBIN,INDIRECT 1.2 mg/dl (0-1.1); BILIRUBIN,TOTAL 2.6 mg/dl (0.2-1.3); BLOOD UREA NITROGEN 113 mg/dl (7-20); CALCIUM 9.5 mg/dl (8.4-10.2); CARBON DIOXIDE 26 mmol/L (21-31); CHLORIDE 108 mmol/L (97-110); CREATININE 4.11 mg/dl (0.61-1.24); Estimated GFR 18 mL/min (>60); GLUCOSE 89 mg/dl (70-220); POTASSIUM 3.5 mmol/L (3.5-5.1); SODIUM 147 mmol/L (135-144); TOTAL PROTEIN 7.9 g/dl (6.1-8.1)
[2019-03-05 05:20] LABS: MAGNESIUM 1.9 mg/dl (1.7-2.5)
[2019-03-05 05:20] LABS: PHOSPHORUS 4.4 mg/dl (2.5-4.9)
[2019-03-05] MEDS: HEPARIN 5,000 UNIT/1 ML VIAL SC ×2 (08:53→20:51)
[2019-03-05] MEDS: METOPROLOL 25 MG TAB PO ×2 (11:00→20:48)
[2019-03-05] MEDS: HEPARIN 1000 UNITS/ML 10 ML INJ CATHETER (17:50)
[2019-03-05] MEDS: HYDROCODONE/APAP (5/325) TAB PO (18:57)
[2019-03-05] MEDS: INSULIN GLARGINE [LANTus] (100 UNITS/ML) SYG SC (20:52)
[2019-03-06] MEDS: INSULIN ASPART [NOVOLOG] 3 ML PEN SC ×6 (01:00→21:00)
[2019-03-06] MEDS: HYDROCODONE/APAP (5/325) TAB PO (02:18)
[2019-03-06 04:40] LABS: ADD MAN DIFF? NO
[2019-03-06 04:47] LABS: WHITE BLOOD COUNT 15.3 10^3/ul (4.8-10.8)
[2019-03-06 04:47] LABS: BASOPHIL # 0.1 10^3/ul (0.0-0.1); BASOPHILS % 0.6 % (0.0-2.0); EOSINOPHILS # 0.1 10^3/ul (0.0-0.5); EOSINOPHILS % 0.9 % (0.0-7.0); HEMATOCRIT 25.6 % (42.0-52.0); HEMOGLOBIN 8.7 g/dl (14.0-18.0); LYMPHOCYTES # 2.5 10^3/ul (0.8-2.9); MEAN CORPUSCULAR HEMOGLOBIN 27.4 pg (29.0-33.0); MEAN CORPUSCULAR VOLUME 80.8 fl (82.0-101.0); MEAN PLATELET VOLUME 12.5 fl (7.4-10.4); MONOCYTE # 1.2 10^3/ul (0.3-0.9); MONOCYTES % 7.9 % (0.0-11.0); NEUTROPHIL # 11.3 10^3/ul (1.6-7.5); NEUTROPHILS % 74.1 % (39.0-77.0); PLATELET COUNT 336 10^3/UL (140-415); RED BLOOD COUNT 3.17 10^6/ul (4.70-6.10); RED CELL DISTRIBUTION WIDTH 18.2 % (11.5-14.5)
[2019-03-06 05:02] LABS: ANION GAP 9 (5-13); BLOOD UREA NITROGEN 66 mg/dl (7-20); CALCIUM 8.9 mg/dl (8.4-10.2); CARBON DIOXIDE 29 mmol/L (21-31); CHLORIDE 102 mmol/L (97-110); CREATININE 2.76 mg/dl (0.61-1.24); Estimated GFR 28 mL/min (>60); GLUCOSE 94 mg/dl (70-220); MAGNESIUM 1.7 mg/dl (1.7-2.5); PHOSPHORUS 4.8 mg/dl (2.5-4.9); POTASSIUM 3.3 mmol/L (3.5-5.1); SODIUM 140 mmol/L (135-144)
[2019-03-06] MEDS: PANTOPRAZOLE 40 MG INJ IV ×2 (05:52→17:11)
[2019-03-06] MEDS: PIPER-TAZO 2.25 GM/NS 50 ML IVPB (05:52)
[2019-03-06] MEDS: HYDROGEN PEROXIDE TOP ×3 (06:00→21:07)
[2019-03-06] MEDS: WATER TOP ×3 (06:00→21:07)
[2019-03-06] MEDS: METOPROLOL 25 MG TAB PO ×2 (08:13→20:48)
[2019-03-06] MEDS: HEPARIN 5,000 UNIT/1 ML VIAL SC ×2 (08:21→20:53)
[2019-03-06] MEDS: ACETAMINOPHEN 325 MG TAB PO (15:02)
[2019-03-06] MEDS: POTASSIUM CHLORIDE (SR) 20 MEQ TAB PO (15:02)
[2019-03-06] MEDS: PANTOPRAZOLE (EC) 40 MG TAB PO (17:27)
[2019-03-06] MEDS: INSULIN GLARGINE [LANTus] (100 UNITS/ML) SYG SC (20:54)
[2019-03-07] MEDS: INSULIN ASPART [NOVOLOG] 3 ML PEN SC ×6 (01:00→20:22)
[2019-03-07 05:29] LABS: ADD MAN DIFF? NO
[2019-03-07 05:33] LABS: WHITE BLOOD COUNT 11.8 10^3/ul (4.8-10.8)
[2019-03-07 05:33] LABS: BASOPHIL # 0.1 10^3/ul (0.0-0.1); BASOPHILS % 0.6 % (0.0-2.0); EOSINOPHILS # 0.2 10^3/ul (0.0-0.5); EOSINOPHILS % 1.7 % (0.0-7.0); HEMATOCRIT 26.7 % (42.0-52.0); LYMPHOCYTES # 2.4 10^3/ul (0.8-2.9); LYMPHOCYTES % 20.7 % (15.0-51.0); MEAN CORPUSCULAR HEMOGLOBIN 27.9 pg (29.0-33.0); MEAN CORPUSCULAR HGB CONC 33.7 g/dl (32.0-37.0); MEAN CORPUSCULAR VOLUME 82.7 fl (82.0-101.0); MEAN PLATELET VOLUME 12.5 fl (7.4-10.4); MONOCYTES % 8.5 % (0.0-11.0); PLATELET COUNT 354 10^3/UL (140-415); RED BLOOD COUNT 3.23 10^6/ul (4.70-6.10); RED CELL DISTRIBUTION WIDTH 18.6 % (11.5-14.5)
[2019-03-07 05:56] LABS: ANION GAP 11 (5-13); BLOOD UREA NITROGEN 65 mg/dl (7-20); CARBON DIOXIDE 28 mmol/L (21-31); CHLORIDE 102 mmol/L (97-110); CREATININE 2.85 mg/dl (0.61-1.24); Estimated GFR 27 mL/min (>60); GLUCOSE 75 mg/dl (70-220); MAGNESIUM 1.7 mg/dl (1.7-2.5); PHOSPHORUS 4.4 mg/dl (2.5-4.9); POTASSIUM 3.6 mmol/L (3.5-5.1); SODIUM 141 mmol/L (135-144)
[2019-03-07] MEDS: PANTOPRAZOLE (EC) 40 MG TAB PO ×2 (06:00→18:19)
[2019-03-07] MEDS: HYDROGEN PEROXIDE TOP ×3 (06:00→20:23)
[2019-03-07] MEDS: WATER TOP ×3 (06:00→20:23)
[2019-03-07] MEDS: METOPROLOL 25 MG TAB PO ×2 (08:25→20:19)
[2019-03-07] MEDS: HEPARIN 5,000 UNIT/1 ML VIAL SC ×2 (08:35→20:21)
[2019-03-07] MEDS: ALTEPLASE (CATHFLO) 2 MG INJ CATHETER (19:05)
[2019-03-07] MEDS: INSULIN GLARGINE [LANTus] (100 UNITS/ML) SYG SC (20:21)
[2019-03-08] MEDS: LORAZEPAM 2 MG INJ IV ×2 (04:17→21:25)
[2019-03-08 05:06] LABS: ADD MAN DIFF? NO
[2019-03-08 05:15] LABS: ABNORMAL IP MESSAGE 1; BASOPHIL # 0.1 10^3/ul (0.0-0.1); BASOPHILS % 0.8 % (0.0-2.0); EOSINOPHILS # 0.1 10^3/ul (0.0-0.5); EOSINOPHILS % 1.2 % (0.0-7.0); HEMATOCRIT 28.2 % (42.0-52.0); LYMPHOCYTES # 2.1 10^3/ul (0.8-2.9); LYMPHOCYTES % 20.8 % (15.0-51.0); MEAN CORPUSCULAR HEMOGLOBIN 27.6 pg (29.0-33.0); MEAN CORPUSCULAR HGB CONC 31.9 g/dl (32.0-37.0); MEAN CORPUSCULAR VOLUME 86.5 fl (82.0-101.0); MEAN PLATELET VOLUME 13.7 fl (7.4-10.4); MONOCYTES % 9.6 % (0.0-11.0); NEUTROPHIL # 6.8 10^3/ul (1.6-7.5); NEUTROPHILS % 67.2 % (39.0-77.0); PLATELET COUNT 329 10^3/UL (140-415); POSITIVE DIFF @See below; RED BLOOD COUNT 3.26 10^6/ul (4.70-6.10); RED CELL DISTRIBUTION WIDTH 20.9 % (11.5-14.5)
[2019-03-08 05:15] LABS: WHITE BLOOD COUNT 10.1 10^3/ul (4.8-10.8)
[2019-03-08] MEDS: WATER TOP ×3 (05:26→22:00)
[2019-03-08] MEDS: HYDROGEN PEROXIDE TOP ×3 (05:26→22:00)
[2019-03-08] MEDS: PANTOPRAZOLE (EC) 40 MG TAB PO ×3 (06:09→18:37)
[2019-03-08 06:59] LABS: ANION GAP 8 (5-13); BLOOD UREA NITROGEN 40 mg/dl (7-20); CALCIUM 9.2 mg/dl (8.4-10.2); CARBON DIOXIDE 31 mmol/L (21-31); CHLORIDE 102 mmol/L (97-110); CREATININE 2.36 mg/dl (0.61-1.24); Estimated GFR 33 mL/min (>60); GLUCOSE 88 mg/dl (70-220); MAGNESIUM 1.8 mg/dl (1.7-2.5); PHOSPHORUS 3.7 mg/dl (2.5-4.9); POTASSIUM 4.2 mmol/L (3.5-5.1); SODIUM 141 mmol/L (135-144)
[2019-03-08] MEDS: INSULIN ASPART [NOVOLOG] 3 ML PEN SC ×4 (07:55→21:00)
[2019-03-08] MEDS: ASPIRIN 81 MG TAB PO (08:30)
[2019-03-08] MEDS: HEPARIN 5,000 UNIT/1 ML VIAL SC ×2 (08:30→23:13)
[2019-03-08] MEDS: METOPROLOL 25 MG TAB PO ×2 (08:31→23:10)
[2019-03-08] MEDS: CEFAZOLIN 1 GM/50 ML (PMX) 0 ML IVPB (10:37)
[2019-03-08] MEDS: CEFAZOLIN 1 GM/50 ML (PMX) 50 ML IVPB (10:37)
[2019-03-08] MEDS: DIPHENHYDRAMINE 50 MG INJ IV (21:23)
[2019-03-08] MEDS: HALOPERIDOL 5 MG INJ IM (21:24)
[2019-03-08] MEDS: INSULIN GLARGINE [LANTus] (100 UNITS/ML) SYG SC (23:16)
[2019-03-09] MEDS: PANTOPRAZOLE (EC) 40 MG TAB PO ×2 (05:59→17:59)
[2019-03-09] MEDS: HYDROGEN PEROXIDE TOP ×3 (06:00→22:00)
[2019-03-09] MEDS: WATER TOP ×3 (06:00→22:00)
[2019-03-09] MEDS: INSULIN ASPART [NOVOLOG] 3 ML PEN SC ×4 (07:55→21:00)
[2019-03-09] MEDS: ASPIRIN 81 MG TAB PO (08:28)
[2019-03-09 08:52] LABS: ANION GAP 13 (5-13); BLOOD UREA NITROGEN 51 mg/dl (7-20); CALCIUM 8.7 mg/dl (8.4-10.2); CARBON DIOXIDE 25 mmol/L (21-31); CHLORIDE 100 mmol/L (97-110); CREATININE 2.28 mg/dl (0.61-1.24); Estimated GFR 35 mL/min (>60); GLUCOSE 143 mg/dl (70-220); POTASSIUM 4.2 mmol/L (3.5-5.1); SODIUM 138 mmol/L (135-144)
[2019-03-09] MEDS: HEPARIN 5,000 UNIT/1 ML VIAL SC ×2 (09:00→21:07)
[2019-03-09] MEDS: METOPROLOL 25 MG TAB PO ×2 (09:07→20:56)
[2019-03-09 15:12] LABS: FREE T4 (FREE THYROXINE) 2.23 ng/dl (0.78-2.44)
[2019-03-09] MEDS: HEPARIN 1000 UNITS/ML 10 ML INJ CATHETER (20:39)
[2019-03-09] MEDS: INSULIN GLARGINE [LANTus] (100 UNITS/ML) SYG SC (21:00)
[2019-03-10] MEDS: HALOPERIDOL 5 MG INJ IM (00:12)
[2019-03-10] MEDS: DIPHENHYDRAMINE 50 MG INJ IV (00:12)
[2019-03-10] MEDS: LORAZEPAM 2 MG INJ IV (00:12)
[2019-03-10] MEDS: HYDROGEN PEROXIDE TOP ×4 (06:22→22:04)
[2019-03-10] MEDS: WATER TOP ×4 (06:22→22:04)
[2019-03-10] MEDS: PANTOPRAZOLE (EC) 40 MG TAB PO ×2 (06:22→17:13)
[2019-03-10] MEDS: INSULIN ASPART [NOVOLOG] 3 ML PEN SC ×4 (07:55→20:25)
[2019-03-10] MEDS: ASPIRIN 81 MG TAB PO (08:35)
[2019-03-10] MEDS: METOPROLOL 25 MG TAB PO ×2 (08:35→20:17)
[2019-03-10] MEDS: HEPARIN 5,000 UNIT/1 ML VIAL SC ×2 (08:39→20:31)
[2019-03-10 09:47] LABS: ANION GAP 12 (5-13); BLOOD UREA NITROGEN 32 mg/dl (7-20); CARBON DIOXIDE 28 mmol/L (21-31); CHLORIDE 99 mmol/L (97-110); CREATININE 2.11 mg/dl (0.61-1.24); Estimated GFR 38 mL/min (>60); GLUCOSE 150 mg/dl (70-220); POTASSIUM 3.9 mmol/L (3.5-5.1); SODIUM 139 mmol/L (135-144)
[2019-03-10] MEDS: ZOLPIDEM 5 MG TAB PO (20:17)
[2019-03-10] MEDS: INSULIN GLARGINE [LANTus] (100 UNITS/ML) SYG SC (20:30)
[2019-03-10] MEDS: BALSAM PERU/CASTOR OIL 60 GM TUBE TOP (20:31)
[2019-03-11] MEDS: ACETAMINOPHEN 325 MG TAB PO ×2 (04:51→21:16)
[2019-03-11] MEDS: PANTOPRAZOLE (EC) 40 MG TAB PO ×2 (05:13→17:11)
[2019-03-11] MEDS: HYDROGEN PEROXIDE TOP ×4 (06:00→22:00)
[2019-03-11] MEDS: WATER TOP ×4 (06:00→22:00)
[2019-03-11 07:18] LABS: ANION GAP 12 (5-13); BLOOD UREA NITROGEN 36 mg/dl (7-20); CALCIUM 9.1 mg/dl (8.4-10.2); CARBON DIOXIDE 27 mmol/L (21-31); CHLORIDE 97 mmol/L (97-110); CREATININE 2.23 mg/dl (0.61-1.24); Estimated GFR 36 mL/min (>60); GLUCOSE 115 mg/dl (70-220); POTASSIUM 3.9 mmol/L (3.5-5.1); SODIUM 136 mmol/L (135-144)
[2019-03-11] MEDS: INSULIN ASPART [NOVOLOG] 3 ML PEN SC ×4 (07:55→20:33)
[2019-03-11] MEDS: ASPIRIN 81 MG TAB PO (08:11)
[2019-03-11] MEDS: METOPROLOL 25 MG TAB PO ×2 (08:12→20:16)
[2019-03-11] MEDS: HEPARIN 5,000 UNIT/1 ML VIAL SC (08:21)
[2019-03-11] MEDS: BALSAM PERU/CASTOR OIL 60 GM TUBE TOP ×2 (08:22→20:17)
[2019-03-11] MEDS: AMIODARONE 200 MG TAB PO (20:16)
[2019-03-11] MEDS: APIXABAN 5 MG TABLET PO (20:17)
[2019-03-11] MEDS: ZOLPIDEM 5 MG TAB PO (20:17)
[2019-03-11] MEDS: INSULIN GLARGINE [LANTus] (100 UNITS/ML) SYG SC (20:33)
[2019-03-12] MEDS: HYDROGEN PEROXIDE TOP ×3 (06:00→21:25)
[2019-03-12] MEDS: WATER TOP ×3 (06:00→21:25)
[2019-03-12] MEDS: PANTOPRAZOLE (EC) 40 MG TAB PO ×2 (06:00→18:00)
[2019-03-12] MEDS: INSULIN ASPART [NOVOLOG] 3 ML PEN SC ×4 (07:45→20:27)
[2019-03-12] MEDS: AMIODARONE 200 MG TAB PO ×2 (08:07→20:27)
[2019-03-12] MEDS: APIXABAN 5 MG TABLET PO ×2 (08:07→20:26)
[2019-03-12] MEDS: METOPROLOL 25 MG TAB PO ×2 (08:08→20:27)
[2019-03-12] MEDS: BALSAM PERU/CASTOR OIL 60 GM TUBE TOP ×2 (08:08→20:29)
[2019-03-12 08:25] LABS: ANION GAP 11 (5-13); BLOOD UREA NITROGEN 38 mg/dl (7-20); CALCIUM 9.1 mg/dl (8.4-10.2); CARBON DIOXIDE 26 mmol/L (21-31); CHLORIDE 99 mmol/L (97-110); Estimated GFR 36 mL/min (>60); GLUCOSE 104 mg/dl (70-220); SODIUM 136 mmol/L (135-144)
[2019-03-12 14:54] LABS: IRON 52 ug/dl (35-150)
[2019-03-12 15:03] LABS: % IRON SATURATION 22 % SAT (22-52); TOTAL IRON BINDING CAPACITY 238 ug/dl (241-421)
[2019-03-12] MEDS: INSULIN GLARGINE [LANTus] (100 UNITS/ML) SYG SC (20:37)
[2019-03-12] MEDS: LORAZEPAM 2 MG INJ IV (22:18)
[2019-03-13] MEDS: DIPHENHYDRAMINE 50 MG INJ IV (01:26)
[2019-03-13] MEDS: HYDROGEN PEROXIDE TOP ×3 (06:00→22:00)
[2019-03-13] MEDS: WATER TOP ×3 (06:00→22:00)
[2019-03-13] MEDS: LORAZEPAM 2 MG INJ IV ×2 (06:28→21:43)
[2019-03-13] MEDS: PANTOPRAZOLE (EC) 40 MG TAB PO ×2 (06:29→17:58)
[2019-03-13] MEDS: INSULIN ASPART [NOVOLOG] 3 ML PEN SC ×4 (07:55→21:00)
[2019-03-13 08:45] LABS: ADD MAN DIFF? NO
[2019-03-13 08:47] LABS: WHITE BLOOD COUNT 16.9 10^3/ul (4.8-10.8)
[2019-03-13 08:47] LABS: ABNORMAL IP MESSAGE 1; BASOPHIL # 0.1 10^3/ul (0.0-0.1); BASOPHILS % 0.4 % (0.0-2.0); EOSINOPHILS # 0.1 10^3/ul (0.0-0.5); EOSINOPHILS % 0.7 % (0.0-7.0); HEMATOCRIT 30.3 % (42.0-52.0); LYMPHOCYTES # 2.2 10^3/ul (0.8-2.9); LYMPHOCYTES % 13.2 % (15.0-51.0); MEAN CORPUSCULAR HEMOGLOBIN 27.9 pg (29.0-33.0); MEAN CORPUSCULAR VOLUME 84.4 fl (82.0-101.0); MEAN PLATELET VOLUME 13.1 fl (7.4-10.4); MONOCYTE # 1.3 10^3/ul (0.3-0.9); MONOCYTES % 7.9 % (0.0-11.0); NEUTROPHIL # 13.1 10^3/ul (1.6-7.5); NEUTROPHILS % 77.3 % (39.0-77.0); PLATELET COUNT 294 10^3/UL (140-415); POSITIVE DIFF @See below; RED BLOOD COUNT 3.59 10^6/ul (4.70-6.10); RED CELL DISTRIBUTION WIDTH 17.9 % (11.5-14.5)
[2019-03-13] MEDS: BALSAM PERU/CASTOR OIL 60 GM TUBE TOP ×2 (09:00→23:50)
[2019-03-13 09:05] LABS: ALANINE AMINOTRANSFERASE 106 IU/L (13-69); ALBUMIN 3.8 g/dl (3.3-4.9); ALBUMIN/GLOBULIN RATIO 0.86; ALKALINE PHOSPHATASE 165 IU/L (42-121); ANION GAP 10 (5-13); ASPARTATE AMINO TRANSFERASE 70 IU/L (15-46); BILIRUBIN,INDIRECT 0.9 mg/dl (0-1.1); BILIRUBIN,TOTAL 0.9 mg/dl (0.2-1.3); BLOOD UREA NITROGEN 31 mg/dl (7-20); CARBON DIOXIDE 26 mmol/L (21-31); CHLORIDE 101 mmol/L (97-110); CREATININE 1.94 mg/dl (0.61-1.24); Estimated GFR 42 mL/min (>60); GLUCOSE 73 mg/dl (70-220); POTASSIUM 3.9 mmol/L (3.5-5.1); SODIUM 137 mmol/L (135-144); TOTAL PROTEIN 8.2 g/dl (6.1-8.1)
[2019-03-13 09:07] LABS: MAGNESIUM 1.5 mg/dl (1.7-2.5)
[2019-03-13 09:07] LABS: PHOSPHORUS 4.6 mg/dl (2.5-4.9)
[2019-03-13 09:31] LABS: INR 1.42; PROTIME 17.5 Sec (11.9-14.9); PT RATIO 1.4
[2019-03-13] MEDS: APIXABAN 5 MG TABLET PO ×2 (11:32→20:10)
[2019-03-13] MEDS: METOPROLOL 25 MG TAB PO ×2 (11:32→20:11)
[2019-03-13] MEDS: AMIODARONE 200 MG TAB PO ×2 (11:32→20:10)
[2019-03-13] MEDS: MAGNESIUM OXIDE 400 MG TAB PO ×2 (17:58→20:10)
[2019-03-13] MEDS: ZOLPIDEM 5 MG TAB PO (21:43)
[2019-03-14] MEDS: PANTOPRAZOLE (EC) 40 MG TAB PO ×2 (06:03→17:31)
[2019-03-14] MEDS: WATER TOP ×3 (06:13→21:56)
[2019-03-14] MEDS: HYDROGEN PEROXIDE TOP ×3 (06:13→21:56)
[2019-03-14] MEDS: ACETAMINOPHEN 325 MG TAB PO (07:55)
[2019-03-14] MEDS: AMIODARONE 200 MG TAB PO ×2 (08:30→20:03)
[2019-03-14] MEDS: MAGNESIUM OXIDE 400 MG TAB PO ×3 (08:30→20:02)
[2019-03-14] MEDS: APIXABAN 5 MG TABLET PO ×2 (08:30→20:03)
[2019-03-14] MEDS: METOPROLOL 25 MG TAB PO ×2 (08:31→20:04)
[2019-03-14] MEDS: BALSAM PERU/CASTOR OIL 60 GM TUBE TOP (08:32)
[2019-03-14] MEDS: INSULIN ASPART [NOVOLOG] 3 ML PEN SC ×4 (08:40→20:09)
[2019-03-14] MEDS: LORAZEPAM 2 MG INJ IV (18:54)
[2019-03-14] MEDS: ZOLPIDEM 5 MG TAB PO ×2 (20:04→22:51)
[2019-03-15] MEDS: LORAZEPAM 2 MG INJ IV (00:52)
[2019-03-15] MEDS: HALOPERIDOL 5 MG INJ IM (04:04)
[2019-03-15 05:41] LABS: ADD MAN DIFF? NO
[2019-03-15 05:42] LABS: ABNORMAL IP MESSAGE 1; BASOPHIL # 0.1 10^3/ul (0.0-0.1); BASOPHILS % 0.7 % (0.0-2.0); EOSINOPHILS # 0.2 10^3/ul (0.0-0.5); EOSINOPHILS % 1.1 % (0.0-7.0); HEMATOCRIT 30.4 % (42.0-52.0); LYMPHOCYTES # 2.3 10^3/ul (0.8-2.9); LYMPHOCYTES % 16.7 % (15.0-51.0); MEAN CORPUSCULAR HEMOGLOBIN 27.9 pg (29.0-33.0); MEAN CORPUSCULAR HGB CONC 32.9 g/dl (32.0-37.0); MEAN CORPUSCULAR VOLUME 84.7 fl (82.0-101.0); MEAN PLATELET VOLUME 13.5 fl (7.4-10.4); MONOCYTE # 1.2 10^3/ul (0.3-0.9); MONOCYTES % 8.6 % (0.0-11.0); NEUTROPHIL # 9.8 10^3/ul (1.6-7.5); NEUTROPHILS % 72.3 % (39.0-77.0); PLATELET COUNT 250 10^3/UL (140-415); POSITIVE DIFF @See below; RED BLOOD COUNT 3.59 10^6/ul (4.70-6.10); RED CELL DISTRIBUTION WIDTH 17.7 % (11.5-14.5)
[2019-03-15 05:42] LABS: WHITE BLOOD COUNT 13.6 10^3/ul (4.8-10.8)
[2019-03-15] MEDS: WATER TOP (05:52)
[2019-03-15] MEDS: PANTOPRAZOLE (EC) 40 MG TAB PO (05:52)
[2019-03-15] MEDS: HYDROGEN PEROXIDE TOP (05:52)
[2019-03-15 06:00] LABS: ANION GAP 13 (5-13); BLOOD UREA NITROGEN 29 mg/dl (7-20); CALCIUM 9.3 mg/dl (8.4-10.2); CARBON DIOXIDE 25 mmol/L (21-31); CHLORIDE 99 mmol/L (97-110); CREATININE 1.81 mg/dl (0.61-1.24); Estimated GFR 45 mL/min (>60); GLUCOSE 127 mg/dl (70-220); POTASSIUM 4.3 mmol/L (3.5-5.1); SODIUM 137 mmol/L (135-144)
[2019-03-15] MEDS: INSULIN ASPART [NOVOLOG] 3 ML PEN SC ×2 (07:35→11:45)
[2019-03-15] MEDS: COLLAGENASE 5 GM (UD JAR) TOP (09:38)
[2019-03-15] MEDS: METOPROLOL 25 MG TAB PO (09:39)
[2019-03-15] MEDS: MAGNESIUM OXIDE 400 MG TAB PO ×2 (09:39→13:00)
[2019-03-15] MEDS: APIXABAN 5 MG TABLET PO (09:39)
[2019-03-15] MEDS: AMIODARONE 200 MG TAB PO (09:39)
== END 2019-03-15 13:35 | DRG 870 ==
LOC: ICU 02-18 14:05 → TEL 03-08 05:22 → MS3 03-13 23:30 → E/R 13:59 → ICU 02-15 05:07 → MS3 03-13 23:25 → TEL 15:45
PROC: 0W3P8ZZ Control Bleeding in Gastrointestinal Tract, Via Natural or Artificial Opening Endoscopic (ICD-10-PCS; 2019-02-23 15:30)
PROC: 5A1955Z Respiratory Ventilation, Greater than 96 Consecutive Hours (ICD-10-PCS; principal; 2019-02-23 15:40)
PROC: 0BH17EZ Insertion of Endotracheal Airway into Trachea, Via Natural or Artificial Opening (ICD-10-PCS; 2019-02-23 15:40)
PROC: 5A1D70Z Performance of Urinary Filtration, Intermittent, Less than 6 Hours Per Day (ICD-10-PCS; 2019-02-23 15:40)
PROC: 02HV33Z Insertion of Infusion Device into Superior Vena Cava, Percutaneous Approach (ICD-10-PCS; 2019-02-23 15:40)
PROC: 30233K1 Transfusion of Nonautologous Frozen Plasma into Peripheral Vein, Percutaneous Approach (ICD-10-PCS; 2019-02-23 15:40)
PROC: 30233N1 Transfusion of Nonautologous Red Blood Cells into Peripheral Vein, Percutaneous Approach (ICD-10-PCS; 2019-02-23 15:40)
PROC: 30233R1 Transfusion of Nonautologous Platelets into Peripheral Vein, Percutaneous Approach (ICD-10-PCS; 2019-02-23 15:40)
PROC: 02HV33Z Insertion of Infusion Device into Superior Vena Cava, Percutaneous Approach (ICD-10-PCS; 2019-02-23 15:40)
DX: A41.9 Sepsis, unspecified organism (principal); I21.A1 Myocardial infarction type 2; R65.21 Severe sepsis with septic shock; G93.41 Metabolic encephalopathy; J96.01 Acute respiratory failure with hypoxia; K72.00 Acute and subacute hepatic failure without coma; N17.0 Acute kidney failure with tubular necrosis; I48.92 Unspecified atrial flutter; I50.20 Unspecified systolic (congestive) heart failure; E87.2 Acidosis; I13.0 Hypertensive heart and chronic kidney disease with heart failure and stage 1 through stage 4 chronic kidney disease, or unspecified chronic kidney disease; D68.9 Coagulation defect, unspecified; K92.2 Gastrointestinal hemorrhage, unspecified; K22.10 Ulcer of esophagus without bleeding; I48.2 Chronic atrial fibrillation; E11.8 Type 2 diabetes mellitus with unspecified complications; E11.22 Type 2 diabetes mellitus with diabetic chronic kidney disease; E87.5 Hyperkalemia; I25.10 Atherosclerotic heart disease of native coronary artery without angina pectoris; E78.5 Hyperlipidemia, unspecified; F17.200 Nicotine dependence, unspecified, uncomplicated; I25.5 Ischemic cardiomyopathy; R62.7 Adult failure to thrive; I27.20 Pulmonary hypertension, unspecified; D69.6 Thrombocytopenia, unspecified; N18.2 Chronic kidney disease, stage 2 (mild); J44.9 Chronic obstructive pulmonary disease, unspecified; D64.9 Anemia, unspecified; I48.0 Paroxysmal atrial fibrillation; I95.9 Hypotension, unspecified; K29.70 Gastritis, unspecified, without bleeding; K25.9 Gastric ulcer, unspecified as acute or chronic, without hemorrhage or perforation; E03.9 Hypothyroidism, unspecified; F03.90 Unspecified dementia, unspecified severity, without behavioral disturbance, psychotic disturbance, mood disturbance, and anxiety; R04.1 Hemorrhage from throat; R13.10 Dysphagia, unspecified; B96.89 Other specified bacterial agents as the cause of diseases classified elsewhere; Z51.5 Encounter for palliative care; Z95.1 Presence of aortocoronary bypass graft; Z68.24 Body mass index [BMI] 24.0-24.9, adult; Z79.4 Long term (current) use of insulin; Z59.0 Homelessness
CPT/HCPCS: 31500; 36415; 36430; 36569; 36600; 70450; 71045; 71250; 74176; 76705; 76775; 76937; 80048; 80053; 80061; 80076; 80307; 81001; 82140; 82271; 82550; 82553; 82607; 82728; 82803; 82962; 83036; 83540; 83605; 83735; 83880; 84100; 84132; 84134; 84145; 84439; 84443; 84484; 85014; 85018; 85025; 85049; 85362; 85378; 85384; 85610; 85670; 85730; 86038; 86255; 86644; 86703; 86704; 86709; 86803; 86850; 86900; 86901; 86920; 87040-91; 87081; 87086; 87340; 90935; 92526; 92610; 93005; 93306; 94002; 94003; 94640; 94664; 94770; 96374; 96375; 97110; 97116; 97163; 97530; 99285-25